=== PATIENT | female | born 1975 | race Caucasian/White ===

== ENCOUNTER 2017-09-24 15:32 | Inpatient (IN) | payer BC ==
[2017-09-24] MEDS ORDERED: HYDROmorphone 0.5 MG/0.5 ML SYRINGE IVPUSH ONE (17:13)
[2017-09-24] MEDS ORDERED: Lidocaine 1% with EPINEPHrine 1:100,000 20 ML MDV INJECT ONE (17:20)
[2017-09-24] MEDS ORDERED: fentaNYL 100 MCG/2 ML SDV ONE (17:33)
[2017-09-24] MEDS ORDERED: Midazolam 1 MG/ML 2 ML SDV ONE (17:34)
[2017-09-24] MEDS ORDERED: fentaNYL 100 MCG/2 ML SDV IVPUSH ONE (18:54)
[2017-09-24] MEDS ORDERED: Midazolam 1 MG/ML 2 ML SDV IVPUSH ONE (18:54)
--- NOTE | 2017-09-24 19:09 | EDM.PDOC ---
ED HPI GENERAL MEDICAL PROBLEM - General Chief Complaint: Headache Stated Complaint: [facility] Time Seen by Provider: 09/24/17 15:59 Source of Information: Reports: Patient History Limitations: Reports: No Limitations - History of Present Illness INITIAL COMMENTS - FREE TEXT/NARRATIVE: 42 y/o F with hx TBI presents with severe headache and neck pain from [facility]. She has chronic headaches but this one is different. Started a few days ago. Sharp, worse posteriorly, worse with head movements, radiates to neck. Has associated severe neck pain. No new injury. No known provoking factor. 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 Had fever to 101 at home yesterday. Mild nausea. No vomiting. no chest pain, cough/sore throat/rhinorrhea. No abd pain. Denies dysuria/hematuria/flank pain. Seen at [place] where CT head was negative. UA positive for infection with LCE+, nitrite +, and >100wbc/hpf. Not treated due to lack of urinary symptoms and ongoing concern for meningitis. Headache Pain Score (Numeric/FACES): 8 - Related Data Allergies Allergy/AdvReac Type Severity Reaction Status Date / Time aspirin Allergy Anaphylactic Verified 09/24/17 15:47 Shock codeine Allergy Anaphylactic Verified 09/24/17 15:47 Shock latex Allergy Hives Verified 09/24/17 15:47 Home Meds: Home Meds Levothyroxine Sodium [Synthroid] 150 mcg PO DAILY 09/24/17 [History] Magnesium 0 mg PO DAILY 09/24/17 [History] Topiramate 50 mg PO DAILY 09/24/17 [History] Past Medical History Neurological History: Reports: Head Trauma, Migraines, Other (See Below) Other Neuro History: head inijury 2 years ago Endocrine/Metabolic History: Reports: Hypoparathyroidism, Hypothyroidism - Past Surgical History GI Surgical History: Reports: Appendectomy, Cholecystectomy Social & Family History - Tobacco Use Smoking Status *Q: Never Smoker - Caffeine Use Caffeine Use: Reports: None - Recreational Drug Use Recreational Drug Use: No ED ROS GENERAL - Review of Systems Review Of Systems: See Below Constitutional: Reports: Fever, Chills, Malaise, Weakness, Fatigue HEENT: Denies: Throat Pain Respiratory: Denies: Cough Cardiovascular: Denies: Chest Pain Endocrine: Reports: No Symptoms GI/Abdominal: Denies: Abdominal Pain : Denies: Dysuria, Flank Pain Musculoskeletal: Reports: Neck Pain Skin: Reports: No Symptoms Neurological: Reports: Headache Psychiatric: Reports: No Symptoms Hematologic/Lymphatic: Reports: No Symptoms Immunologic: Reports: No Symptoms - Physical Exam Exam: See Below Exam Limited By: No Limitations General Appearance: Alert, WD/WN, Mild Distress Eye Exam: Bilateral Eye: EOMI, Normal Inspection, PERRL Ears: Normal External Exam Nose: Normal Inspection Throat/Mouth: Normal Inspection, Normal Oropharynx, Normal Voice, No Airway Compromise Head Exam: Atraumatic, Normocephalic Neck: Normal Inspection, Other (+some stiffness/hesitancy with ROM due to pain, no external evidence of infection) Respiratory/Chest: No Respiratory Distress, Lungs Clear, Normal Breath Sounds, No Accessory Muscle Use, Chest Non-Tender Cardiovascular: Normal Peripheral Pulses, Regular Rate, Rhythm, No Edema, No Murmur GI/Abdominal: Soft, Non-Tender, No Distention. No: Rebound Neuro Exam (Abbreviated): Alert, Oriented, CN II-XII Intact, Normal Cognition, No Motor/Sensory Deficits Back Exam: Normal Inspection. No: CVA Tenderness (L), CVA Tenderness (R) Extremities: Normal Inspection Psychiatric: Normal Affect, Normal Mood Skin Exam: Warm, Dry, Intact, Normal Color, No Rash ED LUMBAR PUNCTURE - Lumbar Puncture Indication: Fever, Nuchal Rigidity, Headache Consent Obtained: Patient Position: Sitting Prep: Sterile Drapes, Chlorhexidine Local Anesthesia - Lidocaine (Xylocaine): 1% with EPI Local Anesthetic Volume: 5cc Vertebral Interspace: L4/L5 Spinal Needle With Stylet: 22ga, 3.5 Inch (Adult) Number of Attempts: 1 Fluid Appearance: Clear Tubes Obtained: 4 Total Fluid Amount: 4cc Complications: No Course - Vital Signs Last Recorded V/S: Last Vital Signs Temp 36.2 C 09/25/17 03:25 Pulse 91 09/24/17 15:38 Resp 18 09/25/17 03:25 BP 108/72 09/25/17 03:25 Pulse Ox 99 09/25/17 03:25 - Orders/Labs/Meds Orders: Active Orders 24 hr Category Date Time Status Height and Weight [RC] 04 Care 09/24/17 20:19 Active Intake and Output [RC] 04,16 Care 09/24/17 20:19 Active Oxygen Therapy [RC] PRN Care 09/24/17 20:19 Active RT Aerosol Therapy [RC] ASDIRECTED Care 09/24/17 20:22 Active Up With Assistance [RC] ASDIRECTED Care 09/24/17 20:19 Active Up ad Mary [RC] ASDIRECTED Care 09/24/17 20:19 Active VTE/DVT Education [RC] BID Care 09/24/17 20:19 Active Vital Signs [RC] Q4HR Care 09/24/17 20:19 Active Consult to Case Management [CONS] Routine Cons 09/24/17 20:22 Active Consult to Certified Art Therapist [CONS] Routine Cons 09/24/17 20:22 Active Consult to Spiritual Care [CONS] Routine Cons 09/24/17 20:22 Active OT Evaluation and Treatment [CONS] Routine Cons 09/24/17 20:22 Active PT Evaluation and Treatment [CONS] Routine Cons 09/24/17 20:22 Active Regular Diet [DIET] Diet 09/24/17 Dinner Active BASIC METABOLIC PANEL,BMP [CHEM] AM Lab 09/26/17 05:11 Ordered BASIC METABOLIC PANEL,BMP [CHEM] AM Lab 09/27/17 05:11 Ordered C-REACTIVE PROTEIN [CHEM] AM Lab 09/26/17 05:11 Ordered C-REACTIVE PROTEIN [CHEM] AM Lab 09/27/17 05:11 Ordered C-REACTIVE PROTEIN [CHEM] AM Lab 09/28/17 05:11 Ordered CBC WITH AUTO DIFF [HEME] AM Lab 09/26/17 05:11 Ordered CBC WITH AUTO DIFF [HEME] AM Lab 09/27/17 05:11 Ordered CBC WITH AUTO DIFF [HEME] AM Lab 09/28/17 05:11 Ordered CELL COUNT,CSF [BF] Stat Lab 09/24/17 19:05 Ordered CULTURE BLOOD [BC] Stat Lab 09/24/17 19:43 Received CULTURE BLOOD [BC] Stat Lab 09/24/17 20:05 Received CULTURE CSF + SMEAR [RM] Stat Lab 09/24/17 18:48 Ordered CULTURE URINE [RM] Stat Lab 09/25/17 03:20 Ordered GLUCOSE,CSF [BF] Stat Lab 09/24/17 19:05 COMP HOLD CSF IN LAB TUBE 1 [BF] Stat Lab 09/24/17 18:48 COMP HOLD CSF IN LAB TUBE 2 [BF] Stat Lab 09/24/17 18:48 COMP MAGNESIUM [CHEM] AM Lab 09/26/17 05:11 Ordered MAGNESIUM [CHEM] AM Lab 09/27/17 05:11 Ordered PROTEIN,CSF [BF] Stat Lab 09/24/17 19:05 COMP Acetaminophen [Tylenol] Med 09/24/17 20:19 Active 650 mg PO Q4H PRN Albuterol/Ipratropium [DuoNeb 3.0-0.5 MG/3 ML] Med 09/24/17 20:19 Active 3 ml NEB Q4H PRN Bisacodyl [Dulcolax] Med 09/24/17 20:19 Active 5 mg PO DAILY PRN Docusate Sodium [Colace] Med 09/24/17 20:19 Active 100 mg PO BID PRN Docusate Sodium/Sennosides [Senna Plus] Med 09/24/17 20:19 Active 1 tab PO BID PRN HYDROmorphone [Dilaudid] Med 09/24/17 20:19 Active 0.5 mg IVPUSH Q2H PRN LORazepam [Ativan] Med 09/24/17 20:23 Active 2 mg IVPUSH Q4H PRN Magnesium Rep Pharmacy to Dose [Pharmacy to Dose - Med 09/24/17 20:30 Pending Magnesium Replacement] 1 dose .XX ASDIRECTED Metoprolol Tartrate [Lopressor] Med 09/24/17 20:23 Active 5 mg IVPUSH Q4H PRN Ondansetron [Zofran] Med 09/24/17 20:19 Active 4 mg IV Q6H PRN Polyethylene Glycol 3350 [MiraLAX] Med 09/24/17 20:19 Active 17 gm PO DAILY PRN Potassium Rep Pharmacy to Dose [Pharmacy to Dose - Med 09/24/17 20:30 Pending Potassium Replacement] 1 dose .XX ASDIRECTED Promethazine [Phenergan] 12.5 mg Med 09/24/17 20:19 Active Sodium Chloride 0.9% [Normal Saline] 50 ml IV Q6H Sodium Chloride 0.9% [Normal Saline] 1,000 ml Med 09/24/17 20:30 Active IV ASDIRECTED Temazepam [Restoril] Med 09/24/17 20:19 Active 15 mg PO BEDTIME PRN Topiramate [Topamax] Med 09/24/17 21:00 Active 50 mg PO BID hydrALAZINE [Apresoline] Med 09/24/17 20:23 Active 20 mg IVPUSH Q4H PRN Blood Culture x2 Reflex Set [OM.PC] Stat Oth 09/24/17 19:03 Ordered Sequential Compression Device [OM.PC] Per Unit Routine Oth 09/24/17 20:19 Ordered Resuscitation Status Routine Resus Stat 09/24/17 20:19 Ordered Medication Orders Acetaminophen (Tylenol) 650 mg PO Q4H PRN PRN Reason: Pain (Mild 1-3)/fever Last Admin: 09/25/17 03:23 Dose: 650 mg Albuterol/Ipratropium (Duoneb 3.0-0.5 Mg/3 Ml) 3 ml NEB Q4H PRN PRN Reason: Shortness Of Breath/wheezing Bisacodyl (Dulcolax) 5 mg PO DAILY PRN PRN Reason: Constipation Calcium Carbonate/Glycine (Calcium Carbonate) 1,200 mg PO BIDMEALS TONY Docusate Sodium (Colace) 100 mg PO BID PRN PRN Reason: Constipation Hydralazine HCl (Apresoline) 20 mg IVPUSH Q4H PRN PRN Reason: Hypertension Hydromorphone HCl (Dilaudid) 0.5 mg IVPUSH Q2H PRN PRN Reason: Pain (severe 7-10) Promethazine HCl 12.5 mg/ (Sodium Chloride) 50.5 mls @ 100 mls/hr IV Q6H PRN PRN Reason: Nausea/Vomiting Sodium Chloride (Normal Saline) 1,000 mls @ 125 mls/hr IV ASDIRECTED [facility] Last Admin: 09/25/17 05:12 Dose: 125 mls/hr Infusion: 09/25/17 04:55 Dose: 125 mls/hr Admin: 09/24/17 20:55 Dose: 125 mls/hr Ceftriaxone Sodium 2 gm/ (Sodium Chloride) 100 mls @ 200 mls/hr IV Q12H [facility] Vancomycin HCl 1.75 gm/ Sodium (Chloride) 500 mls @ 250 mls/hr IV Q12H [facility] Levothyroxine Sodium (Levothyroxine) 150 mcg PO ACBRK [facility] Last Admin: 09/25/17 05:12 Dose: 150 mcg Lorazepam (Ativan) 2 mg IVPUSH Q4H PRN PRN Reason: Seizures Magnesium Sulfate (Pharmacy To Dose - Magnesium Replacement) 1 dose .XX ASDIRECTED [facility] Metoprolol Tartrate (Lopressor) 5 mg IVPUSH Q4H PRN PRN Reason: Tachycardia Ondansetron HCl (Zofran) 4 mg IV Q6H PRN PRN Reason: Nausea/Vomiting Polyethylene Glycol (Miralax) 17 gm PO DAILY PRN PRN Reason: Constipation Potassium Chloride (Pharmacy To Dose - Potassium Replacement) 1 dose .XX ASDIRECTED [facility] Saccharomyces Boulardii (Florastor) 250 mg PO BID [facility] Senna/Docusate Sodium (Senna Plus) 1 tab PO BID PRN PRN Reason: Constipation Temazepam (Restoril) 15 mg PO BEDTIME PRN PRN Reason: Sleep Topiramate (Topamax) 50 mg PO BID [facility] Last Admin: 09/24/17 23:03 Dose: Vancomycin HCl (Pharmacy To Dose - Vancomycin) 1 dose .XX ASDIRECTED [facility] Labs: Laboratory Tests 09/24/17 09/24/17 09/24/17 Range/Units 17:26 17:26 19:05 WBC 11.60 H (3.98-10.04) K/mm3 RBC 4.91 (3.98-5.22) M/mm3 Hgb 13.5 (11.2-15.7) gm/L Hct 41.6 (34.1-44.9) % MCV 84.7 (79.4-94.8) fl MCH 27.5 (25.6-32.2) pg MCHC 32.5 (32.2-35.5) g/dl RDW Std Deviation 42.8 (36.4-46.3) fL Plt Count 369 (182-369) K/mm3 MPV 8.3 L (9.4-12.3) fl Neut % (Auto) 71.7 H (34.0-71.1) % Lymph % (Auto) 15.6 L (19.3-51.7) % Elbert % (Auto) 10.3 (4.7-12.5) % Eos % (Auto) 1.8 (0.7-5.8) Baso % (Auto) 0.3 (0.1-1.2) % Neut # (Auto) 8.31 H (1.56-6.13) K/mm3 Lymph # (Auto) 1.81 (1.18-3.74) K/mm3 Elbert # (Auto) 1.20 H (0.24-0.36) K/mm3 Eos # (Auto) 0.21 (0.04-0.36) K/mm3 Baso # (Auto) 0.03 (0.01-0.08) K/mm3 Sodium 142 (136-145) mEq/L Potassium 3.9 (3.5-5.1) mEq/L Chloride 106 (98-107) mEq/L Carbon Dioxide 23 (21-32) mEq/L Anion Gap 16.9 H (5-15) BUN 10 (7-18) mg/dL Creatinine 1.3 H (0.55-1.02) mg/dL Est Cr Clr Drug Dosing 60.12 mL/min Estimated GFR (MDRD) 45 (>60) mL/min BUN/Creatinine Ratio 7.7 L (14-18) Glucose 87 (74-106) mg/dL Calcium 9.0 (8.5-10.1) mg/dL Total Bilirubin 0.5 (0.2-1.0) mg/dL AST 50 H (15-37) U/L ALT 166 H (14-59) U/L Alkaline Phosphatase 211 H (46-116) U/L C-Reactive Protein 17.9 H* (<1.0) mg/dL Total Protein 7.5 (6.4-8.2) g/dl Albumin 3.3 L (3.4-5.0) g/dl Globulin 4.2 gm/dL Albumin/Globulin Ratio 0.8 L (1-2) CSF Tube Number 2 CSF Volume 2 ml CSF Appearance Clear (CLEAR) CSF Color Colorless CSF Supernatant Appear No xanthochromia CSF WBC 3 (0-8) /uL CSF RBC 0 (0-8) /mm3 CSF Seg Neutrophils 1.0 (0-5) CSF Lymphocytes 9.0 H (0-8) CSF Monos/Macrophages 4.0 (0-5) CSF Glucose (40-70) mg/dl CSF Total Protein (15-45) mg/dl 09/24/17 Range/Units 19:05 WBC (3.98-10.04) K/mm3 RBC (3.98-5.22) M/mm3 Hgb (11.2-15.7) gm/L Hct (34.1-44.9) % MCV (79.4-94.8) fl MCH (25.6-32.2) pg MCHC (32.2-35.5) g/dl RDW Std Deviation (36.4-46.3) fL Plt Count (182-369) K/mm3 MPV (9.4-12.3) fl Neut % (Auto) (34.0-71.1) % Lymph % (Auto) (19.3-51.7) % Elbert % (Auto) (4.7-12.5) % Eos % (Auto) (0.7-5.8) Baso % (Auto) (0.1-1.2) % Neut # (Auto) (1.56-6.13) K/mm3 Lymph # (Auto) (1.18-3.74) K/mm3 Elbert # (Auto) (0.24-0.36) K/mm3 Eos # (Auto) (0.04-0.36) K/mm3 Baso # (Auto) (0.01-0.08) K/mm3 Sodium (136-145) mEq/L Potassium (3.5-5.1) mEq/L Chloride (98-107) mEq/L Carbon Dioxide (21-32) mEq/L Anion Gap (5-15) BUN (7-18) mg/dL Creatinine (0.55-1.02) mg/dL Est Cr Clr Drug Dosing mL/min Estimated GFR (MDRD) (>60) mL/min BUN/Creatinine Ratio (14-18) Glucose (74-106) mg/dL Calcium (8.5-10.1) mg/dL Total Bilirubin (0.2-1.0) mg/dL AST (15-37) U/L ALT (14-59) U/L Alkaline Phosphatase (46-116) U/L C-Reactive Protein (<1.0) mg/dL Total Protein (6.4-8.2) g/dl Albumin (3.4-5.0) g/dl Globulin gm/dL Albumin/Globulin Ratio (1-2) CSF Tube Number CSF Volume ml CSF Appearance (CLEAR) CSF Color CSF Supernatant Appear CSF WBC (0-8) /uL CSF RBC (0-8) /mm3 CSF Seg Neutrophils (0-5) CSF Lymphocytes (0-8) CSF Monos/Macrophages (0-5) CSF Glucose 56.0 (40-70) mg/dl CSF Total Protein 39.6 (15-45) mg/dl Meds: Medications Generic Name Dose Route Start Last Admin Trade Name Freq PRN Reason Stop Dose Admin Acetaminophen 650 mg 09/24/17 20:19 09/25/17 03:23 Tylenol PO 650 mg Q4H PRN Administration Pain (Mild 1-3)/fever Albuterol/Ipratropium 3 ml 09/24/17 20:19 Duoneb 3.0-0.5 Mg/3 Ml NEB Q4H PRN Shortness Of Breath/wheezing Bisacodyl 5 mg 09/24/17 20:19 Dulcolax PO DAILY PRN Constipation Calcium Carbonate/Glycine 1,200 mg 09/25/17 17:00 Calcium Carbonate PO BIDMEALS TONY Docusate Sodium 100 mg 09/24/17 20:19 Colace PO BID PRN Constipation Hydralazine HCl 20 mg 09/24/17 20:23 Apresoline IVPUSH Q4H PRN Hypertension Hydromorphone HCl 0.5 mg 09/24/17 20:19 Dilaudid IVPUSH Q2H PRN Pain (severe 7-10) Promethazine HCl 12.5 mg/ 50.5 mls @ 100 mls/hr 09/24/17 20:19 Sodium Chloride IV Q6H PRN Nausea/Vomiting Sodium Chloride 1,000 mls @ 125 mls/hr 09/24/17 20:30 09/25/17 05:12 Normal Saline IV 125 mls/hr ASDIRECTED TONY Administration Ceftriaxone Sodium 2 gm/ 100 mls @ 200 mls/hr 09/25/17 09:00 Sodium Chloride IV Q12H [facility] Vancomycin HCl 1.75 gm/ Sodium 500 mls @ 250 mls/hr 09/25/17 09:00 Chloride IV Q12H [facility] Levothyroxine Sodium 150 mcg 09/25/17 06:00 09/25/17 05:12 Levothyroxine PO 150 mcg ACBRK [facility]Y Administration Lorazepam 2 mg 09/24/17 20:23 Ativan IVPUSH Q4H PRN Seizures Magnesium Sulfate 1 dose 09/24/17 20:30 Pharmacy To Dose - Magnesium Replacement .XX ASDIRECTED [facility] Metoprolol Tartrate 5 mg 09/24/17 20:23 Lopressor IVPUSH Q4H PRN Tachycardia Ondansetron HCl 4 mg 09/24/17 20:19 Zofran IV Q6H PRN Nausea/Vomiting Polyethylene Glycol 17 gm 09/24/17 20:19 Miralax PO DAILY PRN Constipation Potassium Chloride 1 dose 09/24/17 20:30 Pharmacy To Dose - Potassium Replacement .XX ASDIRECTED [facility] Saccharomyces Boulardii 250 mg 09/25/17 09:00 Florastor PO BID [facility] Senna/Docusate Sodium 1 tab 09/24/17 20:19 Senna Plus PO BID PRN Constipation Temazepam 15 mg 09/24/17 20:19 Restoril PO BEDTIME PRN Sleep Topiramate 50 mg 09/24/17 21:00 09/24/17 23:03 Topamax PO Not Given BID [facility] Vancomycin HCl 1 dose 09/24/17 23:00 Pharmacy To Dose - Vancomycin .XX ASDIRECTED [facility] Discontinued Medications Generic Name Dose Route Start Last Admin Trade Name Freq PRN Reason Stop Dose Admin Ceftriaxone Sodium 2 gm 09/24/17 19:15 09/24/17 21:54 Rocephin IVPUSH Not Given Q24H [facility] Diphenhydramine HCl 50 mg 09/24/17 20:24 09/24/17 20:48 Benadryl IVPUSH 09/24/17 20:25 50 mg ONETIME ONE Administration Fentanyl Confirm 09/24/17 17:33 09/24/17 18:58 Sublimaze Administered 09/24/17 17:34 Not Given Dose 100 mcg .ROUTE .STK-MED ONE Fentanyl 100 mcg 09/24/17 18:54 09/24/17 18:20 Sublimaze IVPUSH 09/24/17 18:55 100 mcg ONETIME ONE Administration Hydromorphone HCl 1 mg 09/24/17 17:13 09/24/17 17:20 Dilaudid IVPUSH 09/24/17 17:14 1 mg ONETIME ONE Administration Vancomycin HCl 2 gm/ Sodium 250 mls @ 250 mls/hr 09/24/17 19:06 09/24/17 20: 55 Chloride IV 09/24/17 20:05 250 mls/hr ONETIME ONE Administration Ceftriaxone Sodium 2 gm/ 100 mls @ 100 mls/hr 09/24/17 19:45 09/24/17 19:43 Sodium Chloride IV 100 mls/hr Q24H [facility] Administration Magnesium Sulfate/Dextrose 1 100 mls @ 100 mls/hr 09/24/17 20:25 09/24/17 22: 09 gm/ Premix IV 09/24/17 21:24 100 mls/hr ONETIME ONE Administration Ketorolac Tromethamine 30 mg 09/24/17 20:24 09/24/17 20:48 Toradol IVPUSH 09/24/17 20:25 30 mg ONETIME ONE Administration Levothyroxine Sodium 150 mcg 09/25/17 09:00 Levothyroxine PO DAILY [facility] Lidocaine/Epinephrine 20 ml 09/24/17 17:20 09/24/17 18:57 Xylocaine 1% With Epinephrine 1:100,000 INJECT 09/24/17 17:21 20 ml ONETIME ONE Administration Metoclopramide HCl 10 mg 09/24/17 20:25 09/24/17 20:48 Reglan IVPUSH 09/24/17 20:26 10 mg ONETIME ONE Administration Midazolam HCl Confirm 09/24/17 17:34 09/24/17 18:58 Versed 1 Mg/Ml Administered 09/24/17 17:35 Not Given Dose 6 mg .ROUTE .STK-MED ONE Midazolam HCl 2 mg 09/24/17 18:54 09/24/17 18:35 Versed 1 Mg/Ml IVPUSH 09/24/17 18:55 2 mg ONETIME ONE Administration Non-Formulary Medication 50 mg 09/25/17 09:00 Topiramate PO DAILY [facility] Oxycodone HCl 5 mg 09/24/17 20:19 Oxycodone PO Q4H PRN Pain (moderate 4-6) Pantoprazole Sodium 40 mg 09/24/17 20:19 09/24/17 22:09 Protonix Iv IVPUSH 09/24/17 20:20 40 mg ONETIME ONE Administration - Re-Assessments/Exams Free Text/Narrative Re-Assessment/Exam: 09/24/17 19:26 Mildly elevated WBC, no additional SIRS criteria. Nontoxic appearing. However given severe headache/neck stiffness and elevated inflammatory markers, proceeded with LP. Antibiotics ordered. Urine culture ordered. Discussed with Dr. Melgar who agrees to admit. CSF has been sent. Departure - Departure Time of Disposition: 19:08 Disposition: Admitted As Inpatient 68 Clinical Impression: Pyelonephritis Headache Qualifiers: Headache type: unspecified Headache chronicity pattern: acute headache Intractability: intractable Qualified Code(s): R51 - Headache - Discharge Information - My Orders Last 24 Hours: My Active Orders 09/24/17 18:48 CULTURE CSF + SMEAR [RM] Stat HOLD CSF IN LAB TUBE 1 [BF] Stat HOLD CSF IN LAB TUBE 2 [BF] Stat 09/24/17 19:03 Blood Culture x2 Reflex Set [OM.PC] Stat 09/24/17 19:05 CELL COUNT,CSF [BF] Stat GLUCOSE,CSF [BF] Stat PROTEIN,CSF [BF] Stat 09/24/17 19:43 CULTURE BLOOD [BC] Stat 09/24/17 20:05 CULTURE BLOOD [BC] Stat 09/25/17 03:20 CULTURE URINE [RM] Stat - Assessment/Plan Last 24 Hours: My Active Orders 09/24/17 18:48 CULTURE CSF + SMEAR [RM] Stat HOLD CSF IN LAB TUBE 1 [BF] Stat HOLD CSF IN LAB TUBE 2 [BF] Stat 09/24/17 19:03 Blood Culture x2 Reflex Set [OM.PC] Stat 09/24/17 19:05 CELL COUNT,CSF [BF] Stat GLUCOSE,CSF [BF] Stat PROTEIN,CSF [BF] Stat 09/24/17 19:43 CULTURE BLOOD [BC] Stat 09/24/17 20:05 CULTURE BLOOD [BC] Stat 09/25/17 03:20 CULTURE URINE [RM] Stat
[2017-09-24] MEDS ORDERED: cefTRIAXone 2 GM Vial IVPUSH SCH (19:15)
[2017-09-24] MEDS ORDERED: cefTRIAXone 2 GM in Sodium Chloride 0.9% 100 ML IV SCH (19:45)
[2017-09-24] MEDS ORDERED: Temazepam 15 MG Cap PO PRN (20:19)
[2017-09-24] MEDS ORDERED: Docusate Sodium 100 MG Cap PO PRN (20:19)
[2017-09-24] MEDS ORDERED: Promethazine 12.5 MG in Sodium Chloride 0.9% 50 ML IV PRN (20:19)
[2017-09-24] MEDS ORDERED: HYDROmorphone 0.5 MG/0.5 ML SYRINGE IVPUSH PRN (20:19)
[2017-09-24] MEDS ORDERED: Albuterol/Ipratropium 3.0-0.5 MG/3 ML Neb Soln NEB PRN (20:19)
[2017-09-24] MEDS ORDERED: Pantoprazole 40 MG Vial IVPUSH ONE (20:19)
[2017-09-24] MEDS ORDERED: Polyethylene Glycol 3350 Powder 17 GM Packet PO PRN (20:19)
[2017-09-24] MEDS ORDERED: oxyCODONE 5 MG Tab PO PRN (20:19)
[2017-09-24] MEDS ORDERED: Bisacodyl 5 MG Tab PO PRN (20:19)
[2017-09-24] MEDS ORDERED: Ondansetron 4 MG/2 ML SDV IV PRN (20:19)
[2017-09-24] MEDS ORDERED: LORazepam 2 MG/ML SDV IVPUSH PRN (20:23)
[2017-09-24] MEDS ORDERED: hydrALAZINE 20 MG/ML SDV IVPUSH PRN (20:23)
[2017-09-24] MEDS ORDERED: Metoprolol Tartrate 5 MG/5 ML SDV IVPUSH PRN (20:23)
[2017-09-24] MEDS ORDERED: Ketorolac 30 MG/ML SDV IVPUSH ONE (20:24)
[2017-09-24] MEDS ORDERED: diphenhydrAMINE 50 MG/ML SDV IVPUSH ONE (20:24)
[2017-09-24] MEDS ORDERED: Metoclopramide 10 MG/2 ML SDV IVPUSH ONE (20:25)
[2017-09-24] MEDS: Sodium Chloride 0.9% 1,000 ML IV SCH (20:55)
--- NOTE | 2017-09-24 21:11 | PCM.HP ---
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 She took tylenol and had been bed rest but w/o any relief. Yesterday, she developed a fever of up to 101. Patient reports photophobia, nausea, and generalized weakness. She also reports not been able to eat or drink due to persist headache. Additionally, patient reports recent eye surgery 3-4 days ago in [place] with Dr. Briggs due to increasing ocular pressure. She was prescribed a new pair of eye glasses but her new rx has not got to her yet. Today, she was primarily seen in [place]. Her initial evaluation shows a fairly unremarkable labs but UA is positive for UTI. Her Head CT scan reports no acute abnormal findings. While in our ED, patient underwent LP to r/o meningitis. She has received intravenous rocephin and vancomycin before she was sent to the unit for further treatment. She being admitted for Severe Headache S/p Intra-ocular Surgery. She is full code. Headache Pain Score (Numeric/FACES): 8 - Related Data Allergies/Adverse Reactions: Allergies Allergy/AdvReac Type Severity Reaction Status Date / Time aspirin Allergy Anaphylactic Verified 09/24/17 15:47 Shock codeine Allergy Anaphylactic Verified 09/24/17 15:47 Shock latex Allergy Hives Verified 09/24/17 15:47 Home Medications: Home Meds Levothyroxine Sodium [Synthroid] 150 mcg PO DAILY 09/24/17 [History] Magnesium 0 mg PO DAILY 09/24/17 [History] Topiramate 50 mg PO DAILY 09/24/17 [History] Liothyronine [Cytomel] 5 mcg PO BID 09/25/17 [History] Past Medical History Neurological History: Reports: Head Trauma, Migraines, Other (See Below) Other Neuro History: head inijury 2 years ago Endocrine/Metabolic History: Reports: Hypoparathyroidism, Hypothyroidism - Past Surgical History GI Surgical History: Reports: Appendectomy, Cholecystectomy Social & Family History - Family History Family Medical History: Noncontributory - Tobacco Use Smoking Status *Q: Never Smoker - Caffeine Use Caffeine Use: Reports: None - Recreational Drug Use Recreational Drug Use: No H&P Review of Systems - Review of Systems: Review Of Systems: See Below General: Reports: Malaise, Weakness. Denies: Fever, Chills HEENT: Reports: Headaches, Other (photophobia) Pulmonary: Reports: No Symptoms Cardiovascular: Reports: No Symptoms Gastrointestinal: Reports: No Symptoms Genitourinary: Reports: No Symptoms Musculoskeletal: Reports: No Symptoms Skin: Denies: Cyanosis, Mottled, Pallor Psychiatric: Denies: Depression, Agitation, Cravings, Suicidal Ideation Neurological: Reports: No Symptoms, Dizziness, Headache, Weakness, Gait Disturbance Hematologic/Lymphatic: Reports: No Symptoms Immunologic: Reports: No Symptoms Exam - Exam Exam: See Below - Vital Signs Vital Signs: Last Vital Signs Temp 37.3 C 09/24/17 15:38 Pulse 91 09/24/17 15:38 Resp 20 09/24/17 15:38 BP 136/90 09/24/17 15:38 Pulse Ox 100 09/24/17 15:38 Weight: 115.666 kg - Exam General: Alert, Oriented, Cooperative HEENT: Conjunctiva Clear, EACs Clear, EOMI, Hearing Intact, Mucosa Moist & Gypsum , Normal Nasal Septum, Posterior Pharynx Clear, Pupils Equal, Other (limited eye ) Neck: Supple, Trachea Midline. No: Full Range of Motion Lungs: Clear to Auscultation, Normal Respiratory Effort Cardiovascular: Regular Rate, Regular Rhythm GI/Abdominal Exam: Normal Bowel Sounds, Soft, Non-Tender, No Organomegaly, No Distention, No Abnormal Bruit, No Mass, Pelvis Stable (Female) Exam: Deferred Rectal (Female) Exam: Deferred Back Exam: Normal Inspection, Decreased Range of Motion Extremities: Normal Inspection, Normal Range of Motion, Non-Tender, No Pedal Edema, Normal Capillary Refill Peripheral Pulses: 3+: Posterior Tibial (L), Posterior Tibial (R), Dorsalis Pedis (L), Dorsalis Pedis (R) Skin: Warm, Dry, Intact Neuro Extensive - Mental Status: Oriented x3, Normal Cognition, Memory Intact Neuro Extensive - Motor, Sensory, Reflexes: CN II-XII Intact (limited due to severe headache and photophobia), Abnormal Gait Psychiatric: Alert, Normal Affect, Normal Mood - Patient Data Lab Results Last 24 hrs: Laboratory Results - last 24 hr 09/24/17 09/24/17 09/24/17 Range/Units 17:26 17:26 19:05 WBC 11.60 H (3.98-10.04) K/mm3 RBC 4.91 (3.98-5.22) M/mm3 Hgb 13.5 (11.2-15.7) gm/L Hct 41.6 (34.1-44.9) % MCV 84.7 (79.4-94.8) fl MCH 27.5 (25.6-32.2) pg MCHC 32.5 (32.2-35.5) g/dl RDW Std Deviation 42.8 (36.4-46.3) fL Plt Count 369 (182-369) K/mm3 MPV 8.3 L (9.4-12.3) fl Neut % (Auto) 71.7 H (34.0-71.1) % Lymph % (Auto) 15.6 L (19.3-51.7) % Lincoln % (Auto) 10.3 (4.7-12.5) % Eos % (Auto) 1.8 (0.7-5.8) Baso % (Auto) 0.3 (0.1-1.2) % Neut # (Auto) 8.31 H (1.56-6.13) K/mm3 Lymph # (Auto) 1.81 (1.18-3.74) K/mm3 Lincoln # (Auto) 1.20 H (0.24-0.36) K/mm3 Eos # (Auto) 0.21 (0.04-0.36) K/mm3 Baso # (Auto) 0.03 (0.01-0.08) K/mm3 Sodium 142 (136-145) mEq/L Potassium 3.9 (3.5-5.1) mEq/L Chloride 106 (98-107) mEq/L Carbon Dioxide 23 (21-32) mEq/L Anion Gap 16.9 H (5-15) BUN 10 (7-18) mg/dL Creatinine 1.3 H (0.55-1.02) mg/dL Est Cr Clr Drug Dosing 60.12 mL/min Estimated GFR (MDRD) 45 (>60) mL/min BUN/Creatinine Ratio 7.7 L (14-18) Glucose 87 (74-106) mg/dL Calcium 9.0 (8.5-10.1) mg/dL Total Bilirubin 0.5 (0.2-1.0) mg/dL AST 50 H (15-37) U/L ALT 166 H (14-59) U/L Alkaline Phosphatase 211 H (46-116) U/L C-Reactive Protein 17.9 H* (<1.0) mg/dL Total Protein 7.5 (6.4-8.2) g/dl Albumin 3.3 L (3.4-5.0) g/dl Globulin 4.2 gm/dL Albumin/Globulin Ratio 0.8 L (1-2) CSF Tube Number 2 CSF Volume 2 ml CSF Appearance Clear (CLEAR) CSF Color Colorless CSF Supernatant Appear No xanthochromia CSF WBC 3 (0-8) /uL CSF RBC 0 (0-8) /mm3 CSF Seg Neutrophils 1.0 (0-5) CSF Lymphocytes 9.0 H (0-8) CSF Monos/Macrophages 4.0 (0-5) CSF Glucose (40-70) mg/dl CSF Total Protein (15-45) mg/dl /12/06 Range/Units 19:05 WBC (3.98-10.04) K/mm3 RBC (3.98-5.22) M/mm3 Hgb (11.2-15.7) gm/L Hct (34.1-44.9) % MCV (79.4-94.8) fl MCH (25.6-32.2) pg MCHC (32.2-35.5) g/dl RDW Std Deviation (36.4-46.3) fL Plt Count (182-369) K/mm3 MPV (9.4-12.3) fl Neut % (Auto) (34.0-71.1) % Lymph % (Auto) (19.3-51.7) % Lincoln % (Auto) (4.7-12.5) % Eos % (Auto) (0.7-5.8) Baso % (Auto) (0.1-1.2) % Neut # (Auto) (1.56-6.13) K/mm3 Lymph # (Auto) (1.18-3.74) K/mm3 Lincoln # (Auto) (0.24-0.36) K/mm3 Eos # (Auto) (0.04-0.36) K/mm3 Baso # (Auto) (0.01-0.08) K/mm3 Sodium (136-145) mEq/L Potassium (3.5-5.1) mEq/L Chloride (98-107) mEq/L Carbon Dioxide (21-32) mEq/L Anion Gap (5-15) BUN (7-18) mg/dL Creatinine (0.55-1.02) mg/dL Est Cr Clr Drug Dosing mL/min Estimated GFR (MDRD) (>60) mL/min BUN/Creatinine Ratio (14-18) Glucose (74-106) mg/dL Calcium (8.5-10.1) mg/dL Total Bilirubin (0.2-1.0) mg/dL AST (15-37) U/L ALT (14-59) U/L Alkaline Phosphatase (46-116) U/L C-Reactive Protein (<1.0) mg/dL Total Protein (6.4-8.2) g/dl Albumin (3.4-5.0) g/dl Globulin gm/dL Albumin/Globulin Ratio (1-2) CSF Tube Number CSF Volume ml CSF Appearance (CLEAR) CSF Color CSF Supernatant Appear CSF WBC (0-8) /uL CSF RBC (0-8) /mm3 CSF Seg Neutrophils (0-5) CSF Lymphocytes (0-8) CSF Monos/Macrophages (0-5) CSF Glucose 56.0 (40-70) mg/dl CSF Total Protein 39.6 (15-45) mg/dl Result Diagrams: 09/25/17 05:14 09/25/17 05:14 Problem List Initiated/Reviewed/Updated: Yes Orders Last 24hrs: Active Orders 24 hr Category Date Time Status Admission Status [Patient Status] [ADT] Routine ADT 09/24/17 20:40 Active Height and Weight [RC] DAILY Care 09/24/17 20:19 Active Intake and Output [RC] QSHIFT Care 09/24/17 20:19 Active Oxygen Therapy [RC] PRN Care 09/24/17 20:19 Active RT Aerosol Therapy [RC] ASDIRECTED Care 09/24/17 20:22 Active Up With Assistance [RC] ASDIRECTED Care 09/24/17 20:19 Active Up ad Mary [RC] ASDIRECTED Care 09/24/17 20:19 Active VTE/DVT Education [RC] PER UNIT ROUTINE Care 09/24/17 20:19 Active Vital Signs [RC] Q4H Care 09/24/17 20:19 Active Consult to Case Management [CONS] Routine Cons 09/24/17 20:22 Active Consult to Director Of Guidance [CONS] Routine Cons 09/24/17 20:22 Active Consult to Spiritual Care [CONS] Routine Cons 09/24/17 20:22 Active OT Evaluation and Treatment [CONS] Routine Cons 09/24/17 20:22 Active PT Evaluation and Treatment [CONS] Routine Cons 09/24/17 20:22 Active Regular Diet [DIET] Diet 09/24/17 Dinner Active BASIC METABOLIC PANEL,BMP [CHEM] AM Lab 09/25/17 05:11 Ordered BASIC METABOLIC PANEL,BMP [CHEM] AM Lab 09/26/17 05:11 Ordered BASIC METABOLIC PANEL,BMP [CHEM] AM Lab 09/27/17 05:11 Ordered C-REACTIVE PROTEIN [CHEM] AM Lab 09/25/17 05:11 Ordered C-REACTIVE PROTEIN [CHEM] AM Lab 09/26/17 05:11 Ordered C-REACTIVE PROTEIN [CHEM] AM Lab 09/27/17 05:11 Ordered C-REACTIVE PROTEIN [CHEM] AM Lab 09/28/17 05:11 Ordered CBC WITH AUTO DIFF [HEME] AM Lab 09/25/17 05:11 Ordered CBC WITH AUTO DIFF [HEME] AM Lab 09/26/17 05:11 Ordered CBC WITH AUTO DIFF [HEME] AM Lab 09/27/17 05:11 Ordered CBC WITH AUTO DIFF [HEME] AM Lab 09/28/17 05:11 Ordered CELL COUNT,CSF [BF] Stat Lab 09/24/17 19:05 Ordered CULTURE BLOOD [BC] Stat Lab 09/24/17 19:43 Received CULTURE BLOOD [BC] Stat Lab 09/24/17 20:05 Received CULTURE CSF + SMEAR [RM] Stat Lab 09/24/17 18:48 Ordered CULTURE URINE [RM] Stat Lab 09/24/17 19:08 Ordered GLUCOSE,CSF [BF] Stat Lab 09/24/17 19:05 COMP HOLD CSF IN LAB TUBE 1 [BF] Stat Lab 09/24/17 19:05 Ordered HOLD CSF IN LAB TUBE 2 [BF] Stat Lab 09/24/17 19:05 Ordered MAGNESIUM [CHEM] AM Lab 09/25/17 05:11 Ordered MAGNESIUM [CHEM] AM Lab 09/26/17 05:11 Ordered MAGNESIUM [CHEM] AM Lab 09/27/17 05:11 Ordered PROTEIN,CSF [BF] Stat Lab 09/24/17 19:05 COMP Acetaminophen [Tylenol] Med 09/24/17 20:19 Active 650 mg PO Q4H PRN Albuterol/Ipratropium [DuoNeb 3.0-0.5 MG/3 ML] Med 09/24/17 20:19 Active 3 ml NEB Q4H PRN Bisacodyl [Dulcolax] Med 09/24/17 20:19 Active 5 mg PO DAILY PRN Docusate Sodium [Colace] Med 09/24/17 20:19 Active 100 mg PO BID PRN Docusate Sodium/Sennosides [Senna Plus] Med 09/24/17 20:19 Active 1 tab PO BID PRN HYDROmorphone [Dilaudid] Med 09/24/17 20:19 Active 0.5 mg IVPUSH Q2H PRN LORazepam [Ativan] Med 09/24/17 20:23 Active 2 mg IVPUSH Q4H PRN Levothyroxine Med 09/25/17 06:00 Active 150 mcg PO ACBRK Magnesium Rep Pharmacy to Dose [Pharmacy to Dose - Med 09/24/17 20:30 Ordered Magnesium Replacement] 1 dose .XX ASDIRECTED Magnesium Sulfate/D5W [Magnesium 1 GM in D5W 100 ML] 1 Med 09/24/17 20:25 Active gm Premix Bag 1 bag IV ONETIME Metoprolol Tartrate [Lopressor] Med 09/24/17 20:23 Active 5 mg IVPUSH Q4H PRN Ondansetron [Zofran] Med 09/24/17 20:19 Active 4 mg IV Q6H PRN Polyethylene Glycol 3350 [MiraLAX] Med 09/24/17 20:19 Active 17 gm PO DAILY PRN Potassium Rep Pharmacy to Dose [Pharmacy to Dose - Med 09/24/17 20:30 Pending Potassium Replacement] 1 dose .XX ASDIRECTED Promethazine [Phenergan] 12.5 mg Med 09/24/17 20:19 Active Sodium Chloride 0.9% [Normal Saline] 50 ml IV Q6H Sodium Chloride 0.9% [Normal Saline] 1,000 ml Med 09/24/17 20:30 Active IV ASDIRECTED Temazepam [Restoril] Med 09/24/17 20:19 Active 15 mg PO BEDTIME PRN Topiramate [Topamax] Med 09/24/17 21:00 Active 50 mg PO BID cefTRIAXone [Rocephin] 2 gm Med 09/24/17 19:45 Active Sodium Chloride 0.9% [Normal Saline] 100 ml IV Q24H hydrALAZINE [Apresoline] Med 09/24/17 20:23 Active 20 mg IVPUSH Q4H PRN oxyCODONE Med 09/24/17 20:19 Pending 5 mg PO Q4H PRN Blood Culture x2 Reflex Set [OM.PC] Stat Oth 09/24/17 19:03 Ordered Sequential Compression Device [OM.PC] Per Unit Routine Oth 09/24/17 20:19 Ordered Resuscitation Status Routine Resus Stat 09/24/17 20:19 Ordered Medication Orders Acetaminophen (Tylenol) 650 mg PO Q4H PRN PRN Reason: Pain (Mild 1-3)/fever Albuterol/Ipratropium (Duoneb 3.0-0.5 Mg/3 Ml) 3 ml NEB Q4H PRN PRN Reason: Shortness Of Breath/wheezing Bisacodyl (Dulcolax) 5 mg PO DAILY PRN PRN Reason: Constipation Docusate Sodium (Colace) 100 mg PO BID PRN PRN Reason: Constipation Hydralazine HCl (Apresoline) 20 mg IVPUSH Q4H PRN PRN Reason: Hypertension Hydromorphone HCl (Dilaudid) 0.5 mg IVPUSH Q2H PRN PRN Reason: Pain (severe 7-10) Ceftriaxone Sodium 2 gm/ (Sodium Chloride) 100 mls @ 100 mls/hr IV Q24H TONY Last Admin: 09/24/17 19:43 Dose: 100 mls/hr Promethazine HCl 12.5 mg/ (Sodium Chloride) 50.5 mls @ 100 mls/hr IV Q6H PRN PRN Reason: Nausea/Vomiting Sodium Chloride (Normal Saline) 1,000 mls @ 125 mls/hr IV ASDIRECTED [facility] Magnesium Sulfate/Dextrose 1 (gm/ Premix) 100 mls @ 100 mls/hr IV ONETIME ONE Stop: 09/24/17 21:24 Levothyroxine Sodium (Levothyroxine) 150 mcg PO ACBRK [facility] Lorazepam (Ativan) 2 mg IVPUSH Q4H PRN PRN Reason: Seizures Magnesium Sulfate (Pharmacy To Dose - Magnesium Replacement) 1 dose .XX ASDIRECTED [facility] Metoprolol Tartrate (Lopressor) 5 mg IVPUSH Q4H PRN PRN Reason: Tachycardia Ondansetron HCl (Zofran) 4 mg IV Q6H PRN PRN Reason: Nausea/Vomiting Oxycodone HCl (Oxycodone) 5 mg PO Q4H PRN PRN Reason: Pain (moderate 4-6) Polyethylene Glycol (Miralax) 17 gm PO DAILY PRN PRN Reason: Constipation Potassium Chloride (Pharmacy To Dose - Potassium Replacement) 1 dose .XX ASDIRECTED [facility] Senna/Docusate Sodium (Senna Plus) 1 tab PO BID PRN PRN Reason: Constipation Temazepam (Restoril) 15 mg PO BEDTIME PRN PRN Reason: Sleep Topiramate (Topamax) 50 mg PO BID [facility] Assessment/Plan Comment:: Assessment/Plan: Acute: Severe Headache - Suspect 2/2 S/p Right Eye Surgery - Acute on Chronic - Per patient she had a recent eye surgery 3-4 days ago in [place] by Dr. Briggs - Personally tried calling him but w/o any success - Head CT scan down in [place] -negative for acute abnormal findings - MRI/MRA outside the window of services - R/o Meningitis with pending LP done in ED - Continue IV Rocephin and Vancomycin - Spoke to Dr. Santana (Neurology in [place]), for tele-consult; she recommends a cocktail of Toradol 30, Benadryl of 50 and Reglan of 10 x 1 and if no response then either Magnesium 1 gram IV x1, depakote IV or Thorazine 10 mg IV Q8H PRN - Will increase dose of her Topamax to 50 mg po BID - Patient and aware we have no MR capability on weekends UTI - UA pos for UTI - Already on Rocephin - Pending UA Cx/Sx Chronic: TBI Short term Memory Loss Post TBI Concussion Chronic [place] Plan: Admit to ICU Resume Home Meds Routine AM Labs Seizure Precautions S/p LP awaiting lab results PT/OT eval SW/CM for d/c planning Code status: 1
[2017-09-24] MEDS ORDERED: Vancomycin 500 MG SDV IV SCH (23:00)
[2017-09-24] MEDS: Topiramate 25 MG Tab PO SCH (23:03)
[2017-09-25] MEDS: Acetaminophen 325 MG Tab PO PRN ×2 (03:23→09:54)
[2017-09-25] MEDS: Levothyroxine 150 MCG Tab PO SCH (05:12)
[2017-09-25] MEDS: Sodium Chloride 0.9% 1,000 ML IV SCH (05:12)
[2017-09-25] MEDS: Topiramate 25 MG Tab PO SCH ×2 (08:28→20:18)
[2017-09-25] MEDS: Saccharomyces Boulardii (Probiotic) 250 MG Cap PO SCH ×2 (08:28→20:17)
[2017-09-25] MEDS ORDERED: Levothyroxine 150 MCG Tab PO SCH (09:00)
[2017-09-25] MEDS ORDERED: Vancomycin 1.75 GM in Sodium Chloride 0.9% 500 ML IV SCH (09:00)
[2017-09-25] MEDS ORDERED: TOPIRAMATE 50 MG PO SCH (09:00)
[2017-09-25] MEDS ORDERED: cefTRIAXone 2 GM in Sodium Chloride 0.9% 100 ML IV SCH (09:00)
[2017-09-25] MEDS: LIOTHYRONINE PO SCH ×2 (11:21→20:17)
[2017-09-25] MEDS ORDERED: Acetaminophen/Butalbital/Caffeine 325-50-40 MG Tab PO PRN (11:29)
--- NOTE | 2017-09-25 16:04 | PCM.PN ---
- General Info Date of Service: 09/25/17 Admission Dx/Problem (Free Text): Admission Diagnosis/Problem Admission Diagnosis/Problem Headache Subjective Update: Follow Up Functional Status: Reports: Pain Controlled, Tolerating Diet, Urinating. Denies : New Symptoms - Review of Systems General: Denies: Fever, Weakness, Fatigue, Malaise HEENT: Reports: Headaches (but better), Other (no photophobia). Denies: Eye Pain, Visual Changes Pulmonary: Denies: Shortness of Breath Cardiovascular: Denies: Chest Pain, Palpitations, Lightheadedness Gastrointestinal: Denies: Abdominal Pain, Decreased Appetite, Nausea, Vomiting Genitourinary: Reports: No Symptoms Musculoskeletal: Reports: No Symptoms Skin: Reports: No Symptoms Neurological: Reports: Headache. Denies: Confusion, Numbness, Seizure, Trouble Speaking, Difficulty Walking, Weakness, Change in Speech, Gait Disturbance Psychiatric: Denies: Depression, Anxiety, Agitation, Hallucinations Systems Review Comment:: She had an uneventful night. She slept good. She looks much better this morning. She alert/awake, no photophobia, comfortable sitting up in bed eating breakfast. She seems to be near baseline with her headache. 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 She is afebrile w/o leukocytosis. Her CRP improved to 13.2 from 17.9 on admission. - Patient Data Vitals - Most Recent: Last Vital Signs Temp 36.3 C 09/25/17 14:07 Pulse 68 09/25/17 14:07 Resp 16 09/25/17 14:07 BP 124/65 09/25/17 14:07 Pulse Ox 100 09/25/17 14:07 Weight - Most Recent: 116.256 kg I&O - Last 24 Hours: Intake & Output 09/25/17 09/25/17 09/25/17 06:59 14:59 22:59 Intake Total 1475 1305 Output Total 550 Balance 925 1305 Lab Results Last 24 Hours: Laboratory Results - last 24 hr 09/24/17 09/24/17 09/24/17 Range/Units 17:26 17:26 19:05 WBC 11.60 H (3.98-10.04) K/mm3 RBC 4.91 (3.98-5.22) M/mm3 Hgb 13.5 (11.2-15.7) gm/L Hct 41.6 (34.1-44.9) % MCV 84.7 (79.4-94.8) fl MCH 27.5 (25.6-32.2) pg MCHC 32.5 (32.2-35.5) g/dl RDW Std Deviation 42.8 (36.4-46.3) fL Plt Count 369 (182-369) K/mm3 MPV 8.3 L (9.4-12.3) fl Neut % (Auto) 71.7 H (34.0-71.1) % Lymph % (Auto) 15.6 L (19.3-51.7) % [place] % (Auto) 10.3 (4.7-12.5) % Eos % (Auto) 1.8 (0.7-5.8) Baso % (Auto) 0.3 (0.1-1.2) % Neut # (Auto) 8.31 H (1.56-6.13) K/mm3 Lymph # (Auto) 1.81 (1.18-3.74) K/mm3 [place] # (Auto) 1.20 H (0.24-0.36) K/mm3 Eos # (Auto) 0.21 (0.04-0.36) K/mm3 Baso # (Auto) 0.03 (0.01-0.08) K/mm3 Sodium 142 (136-145) mEq/L Potassium 3.9 (3.5-5.1) mEq/L Chloride 106 (98-107) mEq/L Carbon Dioxide 23 (21-32) mEq/L Anion Gap 16.9 H (5-15) BUN 10 (7-18) mg/dL Creatinine 1.3 H (0.55-1.02) mg/dL Est Cr Clr Drug Dosing 60.12 mL/min Estimated GFR (MDRD) 45 (>60) mL/min BUN/Creatinine Ratio 7.7 L (14-18) Glucose 87 (74-106) mg/dL Calcium 9.0 (8.5-10.1) mg/dL Magnesium (1.8-2.4) mg/dl Total Bilirubin 0.5 (0.2-1.0) mg/dL AST 50 H (15-37) U/L ALT 166 H (14-59) U/L Alkaline Phosphatase 211 H (46-116) U/L C-Reactive Protein 17.9 H* (<1.0) mg/dL Total Protein 7.5 (6.4-8.2) g/dl Albumin 3.3 L (3.4-5.0) g/dl Globulin 4.2 gm/dL Albumin/Globulin Ratio 0.8 L (1-2) Urine Color (Yellow) Urine Appearance (Clear) Urine pH (5.0-8.0) Ur Specific [place] (1.005-1.030) Urine Protein (Negative) Urine Glucose (UA) (Negative) Urine Ketones (Negative) Urine Occult Blood (Negative) Urine Nitrite (Negative) Urine Bilirubin (Negative) Urine Urobilinogen (0.2-1.0) Ur Leukocyte Esterase (Negative) Urine RBC (0-5) /hpf Urine WBC (0-5) /hpf Ur Epithelial Cells (0-5) /hpf Urine Bacteria (FEW) /hpf Urine Mucus (FEW) /hpf CSF Tube Number 2 CSF Volume 2 ml CSF Appearance Clear (CLEAR) CSF Color Colorless CSF Supernatant Appear No xanthochromia CSF WBC 3 (0-8) /uL CSF RBC 0 (0-8) /mm3 CSF Seg Neutrophils 1.0 (0-5) CSF Lymphocytes 9.0 H (0-8) CSF Monos/Macrophages 4.0 (0-5) CSF Glucose (40-70) mg/dl CSF Total Protein (15-45) mg/dl 09/24/17 09/25/17 09/25/17 Range/Units 19:05 05:14 05:14 WBC 9.36 (3.98-10.04) K/mm3 RBC 4.40 (3.98-5.22) M/mm3 Hgb 12.2 (11.2-15.7) gm/L Hct 37.5 (34.1-44.9) % MCV 85.2 (79.4-94.8) fl MCH 27.7 (25.6-32.2) pg MCHC 32.5 (32.2-35.5) g/dl RDW Std Deviation 42.6 (36.4-46.3) fL Plt Count 348 (182-369) K/mm3 MPV 8.3 L (9.4-12.3) fl Neut % (Auto) 68.3 (34.0-71.1) % Lymph % (Auto) 17.5 L (19.3-51.7) % Leake % (Auto) 10.8 (4.7-12.5) % Eos % (Auto) 3.0 (0.7-5.8) Baso % (Auto) 0.2 (0.1-1.2) % Neut # (Auto) 6.39 H (1.56-6.13) K/mm3 Lymph # (Auto) 1.64 (1.18-3.74) K/mm3 [place] # (Auto) 1.01 H (0.24-0.36) K/mm3 Eos # (Auto) 0.28 (0.04-0.36) K/mm3 Baso # (Auto) 0.02 (0.01-0.08) K/mm3 Sodium 141 (136-145) mEq/L Potassium 3.6 (3.5-5.1) mEq/L Chloride 109 H (98-107) mEq/L Carbon Dioxide 21 (21-32) mEq/L Anion Gap 14.6 (5-15) BUN 11 (7-18) mg/dL Creatinine 1.1 H (0.55-1.02) mg/dL Est Cr Clr Drug Dosing 71.05 mL/min Estimated GFR (MDRD) 55 (>60) mL/min BUN/Creatinine Ratio 10.0 L (14-18) Glucose 89 (74-106) mg/dL Calcium 7.7 L (8.5-10.1) mg/dL Magnesium 2.3 (1.8-2.4) mg/dl Total Bilirubin (0.2-1.0) mg/dL AST (15-37) U/L ALT (14-59) U/L Alkaline Phosphatase (46-116) U/L C-Reactive Protein 13.2 H* (<1.0) mg/dL Total Protein (6.4-8.2) g/dl Albumin (3.4-5.0) g/dl Globulin gm/dL Albumin/Globulin Ratio (1-2) Urine Color (Yellow) Urine Appearance (Clear) Urine pH (5.0-8.0) Ur Specific [place] (1.005-1.030) Urine Protein (Negative) Urine Glucose (UA) (Negative) Urine Ketones (Negative) Urine Occult Blood (Negative) Urine Nitrite (Negative) Urine Bilirubin (Negative) Urine Urobilinogen (0.2-1.0) Ur Leukocyte Esterase (Negative) Urine RBC (0-5) /hpf Urine WBC (0-5) /hpf Ur Epithelial Cells (0-5) /hpf Urine Bacteria (FEW) /hpf Urine Mucus (FEW) /hpf CSF Tube Number CSF Volume ml CSF Appearance (CLEAR) CSF Color CSF Supernatant Appear CSF WBC (0-8) /uL CSF RBC (0-8) /mm3 CSF Seg Neutrophils (0-5) CSF Lymphocytes (0-8) CSF Monos/Macrophages (0-5) CSF Glucose 56.0 (40-70) mg/dl CSF Total Protein 39.6 (15-45) mg/dl 09/25/17 Range/Units 11:21 WBC (3.98-10.04) K/mm3 RBC (3.98-5.22) M/mm3 Hgb (11.2-15.7) gm/L Hct (34.1-44.9) % MCV (79.4-94.8) fl MCH (25.6-32.2) pg MCHC (32.2-35.5) g/dl RDW Std Deviation (36.4-46.3) fL Plt Count (182-369) K/mm3 MPV (9.4-12.3) fl Neut % (Auto) (34.0-71.1) % Lymph % (Auto) (19.3-51.7) % [place]ake % (Auto) (4.7-12.5) % Eos % (Auto) (0.7-5.8) Baso % (Auto) (0.1-1.2) % Neut # (Auto) (1.56-6.13) K/mm3 Lymph # (Auto) (1.18-3.74) K/mm3 [place]ake # (Auto) (0.24-0.36) K/mm3 Eos # (Auto) (0.04-0.36) K/mm3 Baso # (Auto) (0.01-0.08) K/mm3 Sodium (136-145) mEq/L Potassium (3.5-5.1) mEq/L Chloride (98-107) mEq/L Carbon Dioxide (21-32) mEq/L Anion Gap (5-15) BUN (7-18) mg/dL Creatinine (0.55-1.02) mg/dL Est Cr Clr Drug Dosing mL/min Estimated GFR (MDRD) (>60) mL/min BUN/Creatinine Ratio (14-18) Glucose (74-106) mg/dL Calcium (8.5-10.1) mg/dL Magnesium (1.8-2.4) mg/dl Total Bilirubin (0.2-1.0) mg/dL AST (15-37) U/L ALT (14-59) U/L Alkaline Phosphatase (46-116) U/L C-Reactive Protein (<1.0) mg/dL Total Protein (6.4-8.2) g/dl Albumin (3.4-5.0) g/dl Globulin gm/dL Albumin/Globulin Ratio (1-2) Urine Color Yellow (Yellow) Urine Appearance Clear (Clear) Urine pH 7.0 (5.0-8.0) Ur Specific [place] 1.010 (1.005-1.030) Urine Protein Negative (Negative) Urine Glucose (UA) Negative (Negative) Urine Ketones Negative (Negative) Urine Occult Blood Negative (Negative) Urine Nitrite Negative (Negative) Urine Bilirubin Negative (Negative) Urine Urobilinogen 0.2 (0.2-1.0) Ur Leukocyte Esterase 2+ H (Negative) Urine RBC 0-5 (0-5) /hpf Urine WBC 10-20 H (0-5) /hpf Ur Epithelial Cells 5-10 H (0-5) /hpf Urine Bacteria Few (FEW) /hpf Urine Mucus Few (FEW) /hpf CSF Tube Number CSF Volume ml CSF Appearance (CLEAR) CSF Color CSF Supernatant Appear CSF WBC (0-8) /uL CSF RBC (0-8) /mm3 CSF Seg Neutrophils (0-5) CSF Lymphocytes (0-8) CSF Monos/Macrophages (0-5) CSF Glucose (40-70) mg/dl CSF Total Protein (15-45) mg/dl [place] Results Last 24 Hours: Microbiology 09/24/17 18:48 Gram Stain - Final Cerebral Spinal Fluid CSF Culture - Preliminary NO GROWTH AFTER 1 DAY 09/24/17 20:05 Anaerobic Blood Culture - Final Blood - Venous Med Orders - Current: Current Medications Acetaminophen (Tylenol) 650 mg PO Q4H PRN PRN Reason: Pain (Mild 1-3)/fever Last Admin: 09/25/17 09:54 Dose: 650 mg Acetaminophen/Butalbital/Caffeine (Fioricet 325-50-40 Mg) 2 tab PO Q6H PRN PRN Reason: Headache Last Admin: 09/25/17 11:34 Dose: 2 tab Albuterol/Ipratropium (Duoneb 3.0-0.5 Mg/3 Ml) 3 ml NEB Q4H PRN PRN Reason: Shortness Of Breath/wheezing Bisacodyl (Dulcolax) 5 mg PO DAILY PRN PRN Reason: Constipation Calcium Carbonate/Glycine (Calcium Carbonate) 1,200 mg PO BIDMEALS [facility] Docusate Sodium (Colace) 100 mg PO BID PRN PRN Reason: Constipation Hydralazine HCl (Apresoline) 20 mg IVPUSH Q4H PRN PRN Reason: Hypertension Hydromorphone HCl (Dilaudid) 0.5 mg IVPUSH Q2H PRN PRN Reason: Pain (severe 7-10) Promethazine HCl 12.5 mg/ (Sodium Chloride) 50.5 mls @ 100 mls/hr IV Q6H PRN PRN Reason: Nausea/Vomiting Ceftriaxone Sodium 1 gm/ (Dextrose/Water) 100 mls @ 200 mls/hr IV Q12H [facility] Levothyroxine Sodium (Levothyroxine) 150 mcg PO ACBRK [facility] Last Admin: 09/25/17 05:12 Dose: 150 mcg Liothyronine Sodium (Cytomel) 0 mcg PO BID [facility] Last Admin: 09/25/17 11:21 Dose: 5 mcg Lorazepam (Ativan) 2 mg IVPUSH Q4H PRN PRN Reason: Seizures Magnesium Sulfate (Pharmacy To Dose - Magnesium Replacement) 1 dose .XX ASDIRECTED [facility] Metoprolol Tartrate (Lopressor) 5 mg IVPUSH Q4H PRN PRN Reason: Tachycardia Ondansetron HCl (Zofran) 4 mg IV Q6H PRN PRN Reason: Nausea/Vomiting Polyethylene Glycol (Miralax) 17 gm PO DAILY PRN PRN Reason: Constipation Potassium Chloride (Pharmacy To Dose - Potassium Replacement) 1 dose .XX ASDIRECTED [facility] Saccharomyces Boulardii (Florastor) 250 mg PO BID [facility] Last Admin: 09/25/17 08:28 Dose: 250 mg Senna/Docusate Sodium (Senna Plus) 1 tab PO BID PRN PRN Reason: Constipation Temazepam (Restoril) 15 mg PO BEDTIME PRN PRN Reason: Sleep Topiramate (Topamax) 50 mg PO BID [facility] Last Admin: 09/25/17 08:28 Dose: 50 mg Discontinued Medications Ceftriaxone Sodium (Rocephin) 2 gm IVPUSH Q24H [facility] Last Admin: 09/24/17 21:54 Dose: Not Given Diphenhydramine HCl (Benadryl) 50 mg IVPUSH ONETIME ONE Stop: 09/24/17 20:25 Last Admin: 09/24/17 20:48 Dose: 50 mg Fentanyl (Sublimaze) Confirm Administered Dose 100 mcg .ROUTE .STK-MED ONE Stop: 09/24/17 17:34 Last Admin: 09/24/17 18:58 Dose: Not Given Fentanyl (Sublimaze) 100 mcg IVPUSH ONETIME ONE Stop: 09/24/17 18:55 Last Admin: 09/24/17 18:20 Dose: 100 mcg Hydromorphone HCl (Dilaudid) 1 mg IVPUSH ONETIME ONE Stop: 09/24/17 17:14 Last Admin: 09/24/17 17:20 Dose: 1 mg Vancomycin HCl 2 gm/ Sodium (Chloride) 250 mls @ 250 mls/hr IV ONETIME ONE Stop: 09/24/17 20:05 Last Admin: 09/24/17 20:55 Dose: 250 mls/hr Ceftriaxone Sodium 2 gm/ (Sodium Chloride) 100 mls @ 100 mls/hr IV Q24H [facility] Last Admin: 09/24/17 19:43 Dose: 100 mls/hr Sodium Chloride (Normal Saline) 1,000 mls @ 125 mls/hr IV ASDIRECTED [facility] Last Admin: 09/25/17 05:12 Dose: 125 mls/hr Magnesium Sulfate/Dextrose 1 (gm/ Premix) 100 mls @ 100 mls/hr IV ONETIME ONE Stop: 09/24/17 21:24 Last Admin: 09/24/17 22:09 Dose: 100 mls/hr Ceftriaxone Sodium 2 gm/ (Sodium Chloride) 100 mls @ 200 mls/hr IV Q12H [facility] Last Admin: 09/25/17 08:27 Dose: 200 mls/hr Vancomycin HCl 1.75 gm/ Sodium (Chloride) 500 mls @ 250 mls/hr IV Q12H [facility] Last Admin: 09/25/17 08:59 Dose: 250 mls/hr Ketorolac Tromethamine (Toradol) 30 mg IVPUSH ONETIME ONE Stop: 09/24/17 20:25 Last Admin: 09/24/17 20:48 Dose: 30 mg Levothyroxine Sodium (Levothyroxine) 150 mcg PO DAILY [facility] Lidocaine/Epinephrine (Xylocaine 1% With Epinephrine 1:100,000) 20 ml INJECT ONETIME ONE Stop: 09/24/17 17:21 Last Admin: 09/24/17 18:57 Dose: 20 ml Metoclopramide HCl (Reglan) 10 mg IVPUSH ONETIME ONE Stop: 09/24/17 20:26 Last Admin: 09/24/17 20:48 Dose: 10 mg Midazolam HCl (Versed 1 Mg/Ml) Confirm Administered Dose 6 mg .ROUTE .STK-MED ONE Stop: 09/24/17 17:35 Last Admin: 09/24/17 18:58 Dose: Not Given Midazolam HCl (Versed 1 Mg/Ml) 2 mg IVPUSH ONETIME ONE Stop: 09/24/17 18:55 Last Admin: 09/24/17 18:35 Dose: 2 mg Non-Formulary Medication (Topiramate) 50 mg PO DAILY [facility] Oxycodone HCl (Oxycodone) 5 mg PO Q4H PRN PRN Reason: Pain (moderate 4-6) Pantoprazole Sodium (Protonix Iv) 40 mg IVPUSH ONETIME ONE Stop: 09/24/17 20:20 Last Admin: 09/24/17 22:09 Dose: 40 mg Vancomycin HCl (Pharmacy To Dose - Vancomycin) 1 dose .XX ASDIRECTED TONY - Exam General: Alert, Oriented, Cooperative, No Acute Distress HEENT: Pupils Equal, Pupils Reactive, EOMI, Mucous Membr. Moist/[place] Neck: Supple, Trachea Midline, No JVD, No Thyromegaly Lungs: Clear to Auscultation, Normal Respiratory Effort Cardiovascular: Regular Rate, Regular Rhythm GI/Abdominal Exam: Normal Bowel Sounds, Soft, Non-Tender, No Organomegaly, No Distention, No Abnormal Bruit (Female) Exam: Deferred Back Exam: Normal Inspection, Decreased Range of Motion Extremities: Normal Inspection, Normal Range of Motion, Non-Tender, No Pedal Edema, Normal Capillary Refill Peripheral Pulses: 3+: Posterior Tibial (L), Posterior Tibial (R), Dorsalis Pedis (L), Dorsalis Pedis (R) Skin: Warm, Dry, Intact Neurological: No New Focal Deficit Psy/Mental Status: Alert, Normal Affect, Normal Mood - Problem List Review Problem List Initiated/Reviewed/Updated: Yes - My Orders Last 24 Hours: My Active Orders 09/24/17 20:19 Height and Weight [RC] 04 Intake and Output [RC] 04,16 Oxygen Therapy [RC] PRN Up With Assistance [RC] ASDIRECTED Up ad Mary [RC] ASDIRECTED VTE/DVT Education [RC] BID Vital Signs [RC] 03,09,15,21 Acetaminophen [Tylenol] 650 mg PO Q4H PRN Albuterol/Ipratropium [DuoNeb 3.0-0.5 MG/3 ML] 3 ml NEB Q4H PRN Bisacodyl [Dulcolax] 5 mg PO DAILY PRN Docusate Sodium [Colace] 100 mg PO BID PRN Docusate Sodium/Sennosides [Senna Plus] 1 tab PO BID PRN HYDROmorphone [Dilaudid] 0.5 mg IVPUSH Q2H PRN Ondansetron [Zofran] 4 mg IV Q6H PRN Polyethylene Glycol 3350 [MiraLAX] 17 gm PO DAILY PRN Promethazine [Phenergan] 12.5 mg Sodium Chloride 0.9% [Normal Saline] 50 ml IV Q6H Temazepam [Restoril] 15 mg PO BEDTIME PRN Sequential Compression Device [OM.PC] Per Unit Routine Resuscitation Status Routine 09/24/17 20:22 RT Aerosol Therapy [RC] ASDIRECTED Consult to Case Management [CONS] Routine Consult to Game Farm [employer] [CONS] Routine Consult to Spiritual Care [CONS] Routine OT Evaluation and Treatment [CONS] Routine PT Evaluation and Treatment [CONS] Routine 09/24/17 20:23 LORazepam [Ativan] 2 mg IVPUSH Q4H PRN Metoprolol Tartrate [Lopressor] 5 mg IVPUSH Q4H PRN hydrALAZINE [Apresoline] 20 mg IVPUSH Q4H PRN 09/24/17 20:30 Magnesium Rep Pharmacy to Dose [Pharmacy to Dose - Magnesium Replacement] 1 dose .XX ASDIRECTED Potassium Rep Pharmacy to Dose [Pharmacy to Dose - Potassium Replacement] 1 dose .XX ASDIRECTED 09/24/17 21:00 Topiramate [Topamax] 50 mg PO BID 09/24/17 Dinner Regular Diet [DIET] 09/25/17 06:00 Levothyroxine 150 mcg PO ACBRK 09/25/17 09:00 Saccharomyces Boulardii [Florastor] 250 mg PO BID 09/25/17 09:35 Admission Status [Patient Status] [ADT] Routine 09/25/17 11:00 Liothyronine [Cytomel] 0 mcg PO BID 09/25/17 11:29 Acetaminophen/Butalbital/Caff [Fioricet 325-50-40 MG] 2 tab PO Q6H PRN 09/25/17 17:00 Calcium Carbonate 1,200 mg PO BIDMEALS 09/25/17 21:00 cefTRIAXone [Rocephin] 1 gm Dextrose 5% in Water 100 ml IV Q12H 09/26/17 05:11 BASIC METABOLIC PANEL,BMP [CHEM] AM C-REACTIVE PROTEIN [CHEM] AM CBC WITH AUTO DIFF [HEME] AM MAGNESIUM [CHEM] AM 09/27/17 05:11 BASIC METABOLIC PANEL,BMP [CHEM] AM C-REACTIVE PROTEIN [CHEM] AM CBC WITH AUTO DIFF [HEME] AM MAGNESIUM [CHEM] AM 09/28/17 05:11 C-REACTIVE PROTEIN [CHEM] AM CBC WITH AUTO DIFF [HEME] AM - Plan Plan:: Assessment/Plan: Acute: Severe Headache, Improved - Suspect 2/2 S/p Right Eye Surgery - Acute on Chronic - Had a recent eye surgery 3-4 days ago in [place] by Dr. Briggs - Personally tried calling him but w/o any success - Head CT scan down in [place] -negative for acute abnormal findings - MRI/MRA outside the window of services; no services on weekends - R/o Meningitis with pending LP done in ED - Continue IV Rocephin 1 gram Daily and d/c Vancomycin - Spoke to Dr. 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 Continue current treatment Routine AM Labs Seizure Precautions Awaiting UA results from [facility] PT/OT eval if not already done SW/CM for d/c planning Encourage to ambulate as tolerated Code status: 1 Possible d/c in 1-2 days
[2017-09-25] MEDS: Calcium Carbonate 600 MG Tab PO SCH (16:05)
[2017-09-25] MEDS: cefTRIAXone 1 GM in Dextrose 5% in Water 100 ML IV SCH ×2 (20:17)
--- NOTE | 2017-09-26 04:25 | PCM.PN ---
- General Info Date of Service: 09/26/17 Admission Dx/Problem (Free Text): Admission Diagnosis/Problem Admission Diagnosis/Problem Headache Subjective Update: Follow Up Functional Status: Reports: Pain Controlled, Tolerating Diet, Ambulating, Urinating. Denies: New Symptoms - Patient Data Vitals - Most Recent: Last Vital Signs Temp 36.3 C 09/25/17 14:07 Pulse 68 09/25/17 14:07 Resp 16 09/25/17 14:07 BP 124/65 09/25/17 14:07 Pulse Ox 100 09/25/17 14:07 Weight - Most Recent: 116.256 kg I&O - Last 24 Hours: Intake & Output 09/25/17 09/25/17 09/26/17 14:59 22:59 06:59 Intake Total 1305 1600 Output Total 500 Balance 1305 1100 Lab Results Last 24 Hours: Laboratory Results - last 24 hr 09/25/17 09/25/17 09/25/17 Range/Units 05:14 05:14 11:21 WBC 9.36 (3.98-10.04) K/mm3 RBC 4.40 (3.98-5.22) M/mm3 Hgb 12.2 (11.2-15.7) gm/L Hct 37.5 (34.1-44.9) % MCV 85.2 (79.4-94.8) fl MCH 27.7 (25.6-32.2) pg MCHC 32.5 (32.2-35.5) g/dl RDW Std Deviation 42.6 (36.4-46.3) fL Plt Count 348 (182-369) K/mm3 MPV 8.3 L (9.4-12.3) fl Neut % (Auto) 68.3 (34.0-71.1) % Lymph % (Auto) 17.5 L (19.3-51.7) % [place] % (Auto) 10.8 (4.7-12.5) % Eos % (Auto) 3.0 (0.7-5.8) Baso % (Auto) 0.2 (0.1-1.2) % Neut # (Auto) 6.39 H (1.56-6.13) K/mm3 Lymph # (Auto) 1.64 (1.18-3.74) K/mm3 [place] # (Auto) 1.01 H (0.24-0.36) K/mm3 Eos # (Auto) 0.28 (0.04-0.36) K/mm3 Baso # (Auto) 0.02 (0.01-0.08) K/mm3 Sodium 141 (136-145) mEq/L Potassium 3.6 (3.5-5.1) mEq/L Chloride 109 H (98-107) mEq/L Carbon Dioxide 21 (21-32) mEq/L Anion Gap 14.6 (5-15) BUN 11 (7-18) mg/dL Creatinine 1.1 H (0.55-1.02) mg/dL Est Cr Clr Drug Dosing 71.05 mL/min Estimated GFR (MDRD) 55 (>60) mL/min BUN/Creatinine Ratio 10.0 L (14-18) Glucose 89 (74-106) mg/dL Calcium 7.7 L (8.5-10.1) mg/dL Magnesium 2.3 (1.8-2.4) mg/dl C-Reactive Protein 13.2 H* (<1.0) mg/dL Urine Color Yellow (Yellow) Urine Appearance Clear (Clear) Urine pH 7.0 (5.0-8.0) Ur Specific [place] 1.010 (1.005-1.030) Urine Protein Negative (Negative) Urine Glucose (UA) Negative (Negative) Urine Ketones Negative (Negative) Urine Occult Blood Negative (Negative) Urine Nitrite Negative (Negative) Urine Bilirubin Negative (Negative) Urine Urobilinogen 0.2 (0.2-1.0) Ur Leukocyte Esterase 2+ H (Negative) Urine RBC 0-5 (0-5) /hpf Urine WBC 10-20 H (0-5) /hpf Ur Epithelial Cells 5-10 H (0-5) /hpf Urine Bacteria Few (FEW) /hpf Urine Mucus Few (FEW) /hpf [place] Results Last 24 Hours: Microbiology 09/24/17 20:05 Aerobic Blood Culture - Preliminary Blood - Venous NO GROWTH AFTER 1 DAY Anaerobic Blood Culture - Final 09/24/17 19:43 Aerobic Blood Culture - Preliminary Blood - Venous - Lab Draw NO GROWTH AFTER 1 DAY Anaerobic Blood Culture - Preliminary NO GROWTH AFTER 1 DAY 09/24/17 18:48 Gram Stain - Final Cerebral Spinal Fluid CSF Culture - Preliminary NO GROWTH AFTER 1 DAY Med Orders - Current: Current Medications Acetaminophen (Tylenol) 650 mg PO Q4H PRN PRN Reason: Pain (Mild 1-3)/fever Last Admin: 09/25/17 09:54 Dose: 650 mg Acetaminophen/Butalbital/Caffeine (Fioricet 325-50-40 Mg) 2 tab PO Q6H PRN PRN Reason: Headache Last Admin: 09/25/17 11:34 Dose: 2 tab Albuterol/Ipratropium (Duoneb 3.0-0.5 Mg/3 Ml) 3 ml NEB Q4H PRN PRN Reason: Shortness Of Breath/wheezing Bisacodyl (Dulcolax) 5 mg PO DAILY PRN PRN Reason: Constipation Calcium Carbonate/Glycine (Calcium Carbonate) 1,200 mg PO BIDMEALS [facility] Last Admin: 09/25/17 16:05 Dose: 1,200 mg Docusate Sodium (Colace) 100 mg PO BID PRN PRN Reason: Constipation Hydralazine HCl (Apresoline) 20 mg IVPUSH Q4H PRN PRN Reason: Hypertension Hydromorphone HCl (Dilaudid) 0.5 mg IVPUSH Q2H PRN PRN Reason: Pain (severe 7-10) Promethazine HCl 12.5 mg/ (Sodium Chloride) 50.5 mls @ 100 mls/hr IV Q6H PRN PRN Reason: Nausea/Vomiting Ceftriaxone Sodium 1 gm/ (Dextrose/Water) 100 mls @ 200 mls/hr IV Q12H [facility] Last Admin: 09/25/17 20:17 Dose: 200 mls/hr Levothyroxine Sodium (Levothyroxine) 150 mcg PO ACBRK [facility] Last Admin: 09/25/17 05:12 Dose: 150 mcg Liothyronine Sodium (Cytomel) 0 mcg PO BID [facility] Last Admin: 09/25/17 20:17 Dose: 5 mcg Lorazepam (Ativan) 2 mg IVPUSH Q4H PRN PRN Reason: Seizures Magnesium Sulfate (Pharmacy To Dose - Magnesium Replacement) 1 dose .XX ASDIRECTED [facility] Metoprolol Tartrate (Lopressor) 5 mg IVPUSH Q4H PRN PRN Reason: Tachycardia Ondansetron HCl (Zofran) 4 mg IV Q6H PRN PRN Reason: Nausea/Vomiting Polyethylene Glycol (Miralax) 17 gm PO DAILY PRN PRN Reason: Constipation Potassium Chloride (Pharmacy To Dose - Potassium Replacement) 1 dose .XX ASDIRECTED [facility] Saccharomyces Boulardii (Florastor) 250 mg PO BID [facility] Last Admin: 09/25/17 20:17 Dose: 250 mg Senna/Docusate Sodium (Senna Plus) 1 tab PO BID PRN PRN Reason: Constipation Temazepam (Restoril) 15 mg PO BEDTIME PRN PRN Reason: Sleep Topiramate (Topamax) 50 mg PO BID [facility] Last Admin: 09/25/17 20:18 Dose: 50 mg Discontinued Medications Ceftriaxone Sodium (Rocephin) 2 gm IVPUSH Q24H [facility] Last Admin: 09/24/17 21:54 Dose: Not Given Diphenhydramine HCl (Benadryl) 50 mg IVPUSH ONETIME ONE Stop: 09/24/17 20:25 Last Admin: 09/24/17 20:48 Dose: 50 mg Fentanyl (Sublimaze) Confirm Administered Dose 100 mcg .ROUTE .STK-MED ONE Stop: 09/24/17 17:34 Last Admin: 09/24/17 18:58 Dose: Not Given Fentanyl (Sublimaze) 100 mcg IVPUSH ONETIME ONE Stop: 09/24/17 18:55 Last Admin: 09/24/17 18:20 Dose: 100 mcg Hydromorphone HCl (Dilaudid) 1 mg IVPUSH ONETIME ONE Stop: 09/24/17 17:14 Last Admin: 09/24/17 17:20 Dose: 1 mg Vancomycin HCl 2 gm/ Sodium (Chloride) 250 mls @ 250 mls/hr IV ONETIME ONE Stop: 09/24/17 20:05 Last Admin: 09/24/17 20:55 Dose: 250 mls/hr Ceftriaxone Sodium 2 gm/ (Sodium Chloride) 100 mls @ 100 mls/hr IV Q24H [facility] Last Admin: 09/24/17 19:43 Dose: 100 mls/hr Sodium Chloride (Normal Saline) 1,000 mls @ 125 mls/hr IV ASDIRECTED [facility] Last Admin: 09/25/17 05:12 Dose: 125 mls/hr Magnesium Sulfate/Dextrose 1 (gm/ Premix) 100 mls @ 100 mls/hr IV ONETIME ONE Stop: 09/24/17 21:24 Last Admin: 09/24/17 22:09 Dose: 100 mls/hr Ceftriaxone Sodium 2 gm/ (Sodium Chloride) 100 mls @ 200 mls/hr IV Q12H [facility] Last Admin: 09/25/17 08:27 Dose: 200 mls/hr Vancomycin HCl 1.75 gm/ Sodium (Chloride) 500 mls @ 250 mls/hr IV Q12H [facility] Last Admin: 09/25/17 08:59 Dose: 250 mls/hr Ketorolac Tromethamine (Toradol) 30 mg IVPUSH ONETIME ONE Stop: 09/24/17 20:25 Last Admin: 09/24/17 20:48 Dose: 30 mg Levothyroxine Sodium (Levothyroxine) 150 mcg PO DAILY [facility] Lidocaine/Epinephrine (Xylocaine 1% With Epinephrine 1:100,000) 20 ml INJECT ONETIME ONE Stop: 09/24/17 17:21 Last Admin: 09/24/17 18:57 Dose: 20 ml Metoclopramide HCl (Reglan) 10 mg IVPUSH ONETIME ONE Stop: 09/24/17 20:26 Last Admin: 09/24/17 20:48 Dose: 10 mg Midazolam HCl (Versed 1 Mg/Ml) Confirm Administered Dose 6 mg .ROUTE .STK-MED ONE Stop: 09/24/17 17:35 Last Admin: 09/24/17 18:58 Dose: Not Given Midazolam HCl (Versed 1 Mg/Ml) 2 mg IVPUSH ONETIME ONE Stop: 09/24/17 18:55 Last Admin: 09/24/17 18:35 Dose: 2 mg Non-Formulary Medication (Topiramate) 50 mg PO DAILY [facility] Oxycodone HCl (Oxycodone) 5 mg PO Q4H PRN PRN Reason: Pain (moderate 4-6) Pantoprazole Sodium (Protonix Iv) 40 mg IVPUSH ONETIME ONE Stop: 09/24/17 20:20 Last Admin: 09/24/17 22:09 Dose: 40 mg Vancomycin HCl (Pharmacy To Dose - Vancomycin) 1 dose .XX ASDIRECTED [facility] - My Orders Last 24 Hours: My Active Orders 09/25/17 06:00 Levothyroxine 150 mcg PO ACBRK 09/25/17 09:00 Saccharomyces Boulardii [Florastor] 250 mg PO BID 09/25/17 09:35 Admission Status [Patient Status] [ADT] Routine 09/25/17 11:00 Liothyronine [Cytomel] 0 mcg PO BID 09/25/17 11:29 Acetaminophen/Butalbital/Caff [Fioricet 325-50-40 MG] 2 tab PO Q6H PRN 09/25/17 17:00 Calcium Carbonate 1,200 mg PO BIDMEALS 09/25/17 21:00 cefTRIAXone [Rocephin] 1 gm Dextrose 5% in Water 100 ml IV Q12H 09/26/17 05:11 BASIC METABOLIC PANEL,BMP [CHEM] AM C-REACTIVE PROTEIN [CHEM] AM CBC WITH AUTO DIFF [HEME] AM MAGNESIUM [CHEM] AM 09/27/17 05:11 BASIC METABOLIC PANEL,BMP [CHEM] AM C-REACTIVE PROTEIN [CHEM] AM CBC WITH AUTO DIFF [HEME] AM MAGNESIUM [CHEM] AM 09/28/17 05:11 C-REACTIVE PROTEIN [CHEM] AM CBC WITH AUTO DIFF [HEME] AM - Plan Plan:: Assessment/Plan: Acute: Severe Headache, Improved - Suspect 2/2 S/p Right Eye Surgery - Acute on Chronic - Had a recent eye surgery 3-4 days ago in [place] by Dr. Briggs - Personally tried calling him but w/o any success - Head CT scan down in [place] -negative for acute abnormal findings - MRI/MRA outside the window of services; no services on weekends - R/o Meningitis with pending LP done in ED - Continue IV Rocephin 1 gram Daily and d/c Vancomycin - Spoke to Dr. 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
[2017-09-26] MEDS: Acetaminophen 325 MG Tab PO PRN ×2 (04:34→13:03)
[2017-09-26] MEDS: Levothyroxine 150 MCG Tab PO SCH ×2 (04:34→08:10)
[2017-09-26] MEDS: Calcium Carbonate 600 MG Tab PO SCH (07:28)
[2017-09-26] MEDS: Topiramate 25 MG Tab PO SCH (08:51)
[2017-09-26] MEDS: Saccharomyces Boulardii (Probiotic) 250 MG Cap PO SCH (08:51)
[2017-09-26] MEDS: LIOTHYRONINE PO SCH (08:52)
[2017-09-26] MEDS: cefTRIAXone 1 GM in Dextrose 5% in Water 100 ML IV SCH ×2 (08:52)
[2017-09-26 09:14] VITALS: BP 108/79
--- NOTE | 2017-09-26 12:08 | PCM.SN ---
- Free Text/Narrative Note: Called [facility] and spoke to ASHISH Saleh and asked for the UA culture result. She informed me it was preliminary for E. coli. Nurse had tried faxing the result to us at [phone] and x [phone] but w/o any success. Discussed the findings with her and at bedside and informed them what the result means. They were made aware of the identity of the organism but no idea to treat it (no sensitivity). Given that they are very eager to go home to be with their children, I offered them oral cipro but with the intention to follow up with her PCP once her final report is back. They were advised to obtain report in [facility] as soon as they get back home. The patient and her expressed understanding and in agreement with the plans as discussed above.
--- NOTE | 2017-09-26 12:17 | PCM.DCSUM1 ---
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 She took tylenol and had been bed rest but w/o any relief. Yesterday, she developed a fever of up to 101. Patient reports photophobia, nausea, and generalized weakness. She also reports not been able to eat or drink due to persist headache. - Discharge Data Discharge Date: 09/26/17 Discharge Disposition: Home, Self-Care 01 Condition: Good - Discharge Diagnosis/Problem(s) (1) UTI (urinary tract infection) SNOMED Code(s): 22706198 ICD Code: N39.0 - URINARY TRACT INFECTION, SITE NOT SPECIFIED Status: Acute Qualifiers: Hematuria presence: without hematuria (2) Headache SNOMED Code(s): 08456298 ICD Code: R51 - HEADACHE Status: Chronic Qualifiers: Headache type: post-traumatic Headache chronicity pattern: chronic headache Intractability: intractable Qualified Code(s): G44.321 - Chronic post-traumatic headache, intractable - Patient Summary/Data Operative Procedure(s) Performed: None Complications: None Consults: Consultations 09/24/17 20:22 Consult to Case Management [CONS] Routine Consult to Lunchroom Worker [CONS] Routine Consult to Spiritual Care [CONS] Routine OT Evaluation and Treatment [CONS] Routine PT Evaluation and Treatment [CONS] Routine Labs Pending at D/C: None Recommended Follow-up Testing/Procedures: None Planned Operative Procedure(s) after DC: None Hospital Course: The patient was primarily admitted for medical management of severe headache which we felt secondary to occipital neuralgia. She carried a history of TBI with residual vision loss, chronic headache and status post TBI compression. Patient recently undergone eye surgery due to worsening ocular pressure and thereafter her chronic headache progressively got worse. She tried her usual medication and over the counter tylenol but without any success. Patient was seen initially at [facility] and she was found to have UTI. However she was referred to us for upper level of care. Upon presentation, she was severely photophobic. Her head CT scan showed no acute abnormal findings. At that time, MR services was not available. While in ED, she underwent bedside LP to r/o meningitis. Patient tolerated the procedure w/o any complications. She received intravenous Rocephin and Vancomycin for initial treatment. Prior to moving her to the unit, we tried calling Dr. Briggs her neuro- final installer inspector in [place] but w/o any luck. However we consulted Neurology in [facility] and we were guided by Dr. Santana for medical management. Patient received medical treatment and intravenous antibiotic as noted above. Once her spinal fluid came back negative for meningitis, her antibiotic was immediately de-escalated to intravenous rocephin for treatment of her uncomplicated UTI. Her hospital course was uncomplicated and the rest of her chronic medical illness remained stable during this admission. Patient was stable upon d/c. She was discharge with short course of oral cipro to complete her treatment. She was advised to stop by in [facility] to obtain sensitivity of her culture and make a follow up appointment with her PCP. She further advised to come back or seek immediate care should her symptom persists or gets worse. The patient and her expressed understanding and in agreement with the plans as discussed above. All questions were answered. - Patient Instructions Diet: Usual Diet as Tolerated Activity: As Tolerated Driving: Do Not Drive Showering/Bathing: May Shower Notify Provider of: Fever, Increased Pain, Nausea and/or Vomiting Other/Special Instructions: - Please take new medication as directed. - Continue routine home medications except Topamax (see changes). - Resume routine home activities as tolerated. - Call or follow up with your PCP for any questions or concerns after discharge. - Recommend you see Dr. Briggs for follow up appointment in 1 week. - Recommend you go to [facility] to obtain final report of your urinalysis and discuss it woth you PCP. - Come back or seek immediate care should your symptoms persist or get worse - Discharge Plan Prescriptions/Med Rec: Ciprofloxacin HCl 250 mg PO Q12H #10 tablet Saccharomyces Boulardii [Florastor] 250 mg PO BID #10 cap Home Medications: Home Meds Levothyroxine Sodium [Synthroid] 150 mcg PO DAILY 09/24/17 [History] Magnesium 0 mg PO DAILY 09/24/17 [History] Topiramate 50 mg PO DAILY 09/24/17 [History] Liothyronine [Cytomel] 5 mcg PO BID 09/25/17 [History] Ciprofloxacin HCl 250 mg PO Q12H #10 tablet 09/26/17 [Rx] Saccharomyces Boulardii [Florastor] 250 mg PO BID #10 cap 09/26/17 [Rx] Topiramate [Topamax] 50 mg PO BID tablet 09/26/17 [Rx] Patient Handouts: Occipital Neuralgia, Urinary Tract Infection, Adult, Easy-to- Read Referrals: PCP,Not In Area [Primary Care Provider] - (-Please call and schedule a follow up apt. with your primary care provider in 7-10 days.) - Discharge Summary/Plan Comment DC Time >30 min.: Yes (45 mins) Discharge Summary/Plan Comment: Discharge to Home - General Info Date of Service: 09/26/17 Subjective Update: Follow Up - Patient Data Vitals - Most Recent: Last Vital Signs Temp 36.4 C 09/26/17 09:04 Pulse 55 L 09/26/17 09:04 Resp 20 09/26/17 09:04 BP 108/79 09/26/17 09:04 Pulse Ox 99 09/26/17 09:04 Weight - Most Recent: 117.208 kg I&O - Last 24 hours: Intake & Output 09/25/17 09/26/17 09/26/17 22:59 06:59 14:59 Intake Total 1600 800 Output Total 500 3000 Balance 1100 -2200 Lab Results - Last 24 hrs: Laboratory Results - last 24 hr 09/26/17 09/26/17 Range/Units 05:34 05:34 WBC 10.29 H (3.98-10.04) K/mm3 RBC 4.52 (3.98-5.22) M/mm3 Hgb 12.9 (11.2-15.7) gm/L Hct 38.3 (34.1-44.9) % MCV 84.7 (79.4-94.8) fl MCH 28.5 (25.6-32.2) pg MCHC 33.7 (32.2-35.5) g/dl RDW Std Deviation 42.7 (36.4-46.3) fL Plt Count 385 H (182-369) K/mm3 MPV 8.7 L (9.4-12.3) fl Neut % (Auto) 63.6 (34.0-71.1) % Lymph % (Auto) 23.3 (19.3-51.7) % [place] % (Auto) 8.3 (4.7-12.5) % Eos % (Auto) 4.5 (0.7-5.8) Baso % (Auto) 0.3 (0.1-1.2) % Neut # (Auto) 6.55 H (1.56-6.13) K/mm3 Lymph # (Auto) 2.40 (1.18-3.74) K/mm3 [place] # (Auto) 0.85 H (0.24-0.36) K/mm3 Eos # (Auto) 0.46 H (0.04-0.36) K/mm3 Baso # (Auto) 0.03 (0.01-0.08) K/mm3 Sodium 141 (136-145) mEq/L Potassium 3.8 (3.5-5.1) mEq/L Chloride 106 (98-107) mEq/L Carbon Dioxide 20 L (21-32) mEq/L Anion Gap 18.8 H (5-15) BUN 12 (7-18) mg/dL Creatinine 1.3 H (0.55-1.02) mg/dL Est Cr Clr Drug Dosing 60.12 mL/min Estimated GFR (MDRD) 45 (>60) mL/min BUN/Creatinine Ratio 9.2 L (14-18) Glucose 101 (74-106) mg/dL Calcium 8.0 L (8.5-10.1) mg/dL Magnesium 2.1 (1.8-2.4) mg/dl C-Reactive Protein 9.0 H* (<1.0) mg/dL [facility] Results - Last 24 hrs: Microbiology 09/24/17 18:48 Gram Stain - Final Cerebral Spinal Fluid CSF Culture - Preliminary NO GROWTH AFTER 2 DAYS 09/24/17 20:05 Aerobic Blood Culture - Preliminary Blood - Venous NO GROWTH AFTER 1 DAY Anaerobic Blood Culture - Final 09/24/17 19:43 Aerobic Blood Culture - Preliminary Blood - Venous - Lab Draw NO GROWTH AFTER 1 DAY Anaerobic Blood Culture - Preliminary NO GROWTH AFTER 1 DAY Med Orders - Current: Current Medications Acetaminophen (Tylenol) 650 mg PO Q4H PRN PRN Reason: Pain (Mild 1-3)/fever Last Admin: 09/26/17 04:34 Dose: 650 mg Acetaminophen/Butalbital/Caffeine (Fioricet 325-50-40 Mg) 2 tab PO Q6H PRN PRN Reason: Headache Last Admin: 09/25/17 11:34 Dose: 2 tab Albuterol/Ipratropium (Duoneb 3.0-0.5 Mg/3 Ml) 3 ml NEB Q4H PRN PRN Reason: Shortness Of Breath/wheezing Bisacodyl (Dulcolax) 5 mg PO DAILY PRN PRN Reason: Constipation Calcium Carbonate/Glycine (Calcium Carbonate) 1,200 mg PO BIDMEALS [facility] Last Admin: 09/26/17 07:28 Dose: 1,200 mg Docusate Sodium (Colace) 100 mg PO BID PRN PRN Reason: Constipation Hydralazine HCl (Apresoline) 20 mg IVPUSH Q4H PRN PRN Reason: Hypertension Hydromorphone HCl (Dilaudid) 0.5 mg IVPUSH Q2H PRN PRN Reason: Pain (severe 7-10) Promethazine HCl 12.5 mg/ (Sodium Chloride) 50.5 mls @ 100 mls/hr IV Q6H PRN PRN Reason: Nausea/Vomiting Ceftriaxone Sodium 1 gm/ (Dextrose/Water) 100 mls @ 200 mls/hr IV Q24H [facility] Levothyroxine Sodium (Levothyroxine) 150 mcg PO ACBRK [facility] Last Admin: 09/26/17 08:10 Dose: Not Given Liothyronine Sodium (Cytomel) 0 mcg PO BID [facility] Last Admin: 09/26/17 08:52 Dose: 5 mcg Lorazepam (Ativan) 2 mg IVPUSH Q4H PRN PRN Reason: Seizures Magnesium Sulfate (Pharmacy To Dose - Magnesium Replacement) 1 dose .XX ASDIRECTED [facility] Metoprolol Tartrate (Lopressor) 5 mg IVPUSH Q4H PRN PRN Reason: Tachycardia Ondansetron HCl (Zofran) 4 mg IV Q6H PRN PRN Reason: Nausea/Vomiting Polyethylene Glycol (Miralax) 17 gm PO DAILY PRN PRN Reason: Constipation Potassium Chloride (Pharmacy To Dose - Potassium Replacement) 1 dose .XX ASDIRECTED [facility] Saccharomyces Boulardii (Florastor) 250 mg PO BID [facility] Last Admin: 09/26/17 08:51 Dose: 250 mg Senna/Docusate Sodium (Senna Plus) 1 tab PO BID PRN PRN Reason: Constipation Temazepam (Restoril) 15 mg PO BEDTIME PRN PRN Reason: Sleep Topiramate (Topamax) 50 mg PO BID [facility] Last Admin: 09/26/17 08:51 Dose: 50 mg Discontinued Medications Ceftriaxone Sodium (Rocephin) 2 gm IVPUSH Q24H [facility] Last Admin: 09/24/17 21:54 Dose: Not Given Diphenhydramine HCl (Benadryl) 50 mg IVPUSH ONETIME ONE Stop: 09/24/17 20:25 Last Admin: 09/24/17 20:48 Dose: 50 mg Fentanyl (Sublimaze) Confirm Administered Dose 100 mcg .ROUTE .STK-MED ONE Stop: 09/24/17 17:34 Last Admin: 09/24/17 18:58 Dose: Not Given Fentanyl (Sublimaze) 100 mcg IVPUSH ONETIME ONE Stop: 09/24/17 18:55 Last Admin: 09/24/17 18:20 Dose: 100 mcg Hydromorphone HCl (Dilaudid) 1 mg IVPUSH ONETIME ONE Stop: 09/24/17 17:14 Last Admin: 09/24/17 17:20 Dose: 1 mg Vancomycin HCl 2 gm/ Sodium (Chloride) 250 mls @ 250 mls/hr IV ONETIME ONE Stop: 09/24/17 20:05 Last Admin: 09/24/17 20:55 Dose: 250 mls/hr Ceftriaxone Sodium 2 gm/ (Sodium Chloride) 100 mls @ 100 mls/hr IV Q24H [facility] Last Admin: 09/24/17 19:43 Dose: 100 mls/hr Sodium Chloride (Normal Saline) 1,000 mls @ 125 mls/hr IV ASDIRECTED [facility] Last Admin: 09/25/17 05:12 Dose: 125 mls/hr Magnesium Sulfate/Dextrose 1 (gm/ Premix) 100 mls @ 100 mls/hr IV ONETIME ONE Stop: 09/24/17 21:24 Last Admin: 09/24/17 22:09 Dose: 100 mls/hr Ceftriaxone Sodium 2 gm/ (Sodium Chloride) 100 mls @ 200 mls/hr IV Q12H [facility] Last Admin: 09/25/17 08:27 Dose: 200 mls/hr Vancomycin HCl 1.75 gm/ Sodium (Chloride) 500 mls @ 250 mls/hr IV Q12H [facility] Last Admin: 09/25/17 08:59 Dose: 250 mls/hr Ceftriaxone Sodium 1 gm/ (Dextrose/Water) 100 mls @ 200 mls/hr IV Q12H [facility] Last Admin: 09/26/17 08:52 Dose: 200 mls/hr Ketorolac Tromethamine (Toradol) 30 mg IVPUSH ONETIME ONE Stop: 09/24/17 20:25 Last Admin: 09/24/17 20:48 Dose: 30 mg Levothyroxine Sodium (Levothyroxine) 150 mcg PO DAILY [facility] Lidocaine/Epinephrine (Xylocaine 1% With Epinephrine 1:100,000) 20 ml INJECT ONETIME ONE Stop: 09/24/17 17:21 Last Admin: 09/24/17 18:57 Dose: 20 ml Metoclopramide HCl (Reglan) 10 mg IVPUSH ONETIME ONE Stop: 09/24/17 20:26 Last Admin: 09/24/17 20:48 Dose: 10 mg Midazolam HCl (Versed 1 Mg/Ml) Confirm Administered Dose 6 mg .ROUTE .STK-MED ONE Stop: 09/24/17 17:35 Last Admin: 09/24/17 18:58 Dose: Not Given Midazolam HCl (Versed 1 Mg/Ml) 2 mg IVPUSH ONETIME ONE Stop: 09/24/17 18:55 Last Admin: 09/24/17 18:35 Dose: 2 mg Non-Formulary Medication (Topiramate) 50 mg PO DAILY [facility] Oxycodone HCl (Oxycodone) 5 mg PO Q4H PRN PRN Reason: Pain (moderate 4-6) Pantoprazole Sodium (Protonix Iv) 40 mg IVPUSH ONETIME ONE Stop: 09/24/17 20:20 Last Admin: 09/24/17 22:09 Dose: 40 mg Vancomycin HCl (Pharmacy To Dose - Vancomycin) 1 dose .XX ASDIRECTED [facility]
[2017-09-27] MEDS ORDERED: cefTRIAXone 1 GM in Dextrose 5% in Water 100 ML IV SCH ×2 (09:00)
== END 2017-09-26 13:10 | disposition home or self-care (01) | DRG 813 ==
LOC: JD.ED 15:32 → EDBD 15:32 → MERGE 20:40 → JD.ICU 20:40 → JD.MS 09-25 09:35
PROVIDERS: ADMIT Internal Medicine; ATTEND Internal Medicine
PROC: 009U3ZX Drainage of Spinal Canal, Percutaneous Approach, Diagnostic (ICD-10-PCS; principal; 2017-09-24)
DX: T81.89XA Other complications of procedures, not elsewhere classified, initial encounter (principal); R51 Headache; H53.149 Visual discomfort, unspecified; Y83.8 Other surgical procedures as the cause of abnormal reaction of the patient, or of later complication, without mention of misadventure at the time of the procedure; N39.0 Urinary tract infection, site not specified; B96.20 Unspecified Escherichia coli [E. coli] as the cause of diseases classified elsewhere; E03.9 Hypothyroidism, unspecified; H54.7 Unspecified visual loss; R41.3 Other amnesia; E20.9 Hypoparathyroidism, unspecified; R53.81 Other malaise; R53.1 Weakness; M54.2 Cervicalgia; G43.909 Migraine, unspecified, not intractable, without status migrainosus; Z88.8 Allergy status to other drugs, medicaments and biological substances; Z88.6 Allergy status to analgesic agent; Z90.49 Acquired absence of other specified parts of digestive tract; Z91.040 Latex allergy status; Z79.899 Other long term (current) drug therapy; Z87.820 Personal history of traumatic brain injury
CPT/HCPCS: 36415; 62270; 62272; 80048; 80053; 81001; 82945; 83735; 84157; 85025; 86140; 87040; 87070; 87086; 87205; 89050; 96365; 96375; 99284-25; 99285-25; A9270; A9270-GY; C9113; J0696; J1170; J1200; J1885; J2250; J2765; J3010; J3370; J3475; J7030; J7040; J7050; J7060

== ENCOUNTER 2017-12-07 21:08 | Emergency (ER) | payer BC ==
[2017-12-07] MEDS ORDERED: Ondansetron 4 MG/2 ML SDV IVPUSH ONE (21:47)
[2017-12-07] MEDS ORDERED: Sodium Chloride 0.9% 1,000 ML IV STA (21:47)
[2017-12-07] MEDS ORDERED: Sodium Chloride 0.9% 10 ML Syringe FLUSH PRN (21:47)
[2017-12-07] MEDS ORDERED: HYDROmorphone 0.5 MG/0.5 ML SYRINGE IVPUSH ONE (21:49)
[2017-12-07 23:06] VITALS: BP 123/81
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
[2017-12-07] MEDS ORDERED: Metoclopramide 10 MG/2 ML SDV IVPUSH ONE (23:20)
== END 2017-12-07 23:35 | disposition home or self-care (01) ==
LOC: JD.ED 21:08
DX: K52.9 Noninfective gastroenteritis and colitis, unspecified (principal); E03.9 Hypothyroidism, unspecified; E20.9 Hypoparathyroidism, unspecified; Z88.6 Allergy status to analgesic agent; Z88.5 Allergy status to narcotic agent; Z79.899 Other long term (current) drug therapy
CPT/HCPCS: 36415; 80053; 81001; 83690; 84703; 85025; 96361; 96374; 96375; 99284; J1170; J2405; J2765; J7040; J7050

== ENCOUNTER 2018-12-01 00:28 | Emergency (ER) | payer OTHER, MEDICARE, BC ==
[2018-12-01] MEDS ORDERED: diphenhydrAMINE 50 MG/ML SDV IVPUSH ONE (00:57)
[2018-12-01] MEDS ORDERED: HYDROmorphone 1 MG/ML Syringe IVPUSH ONE (00:57)
[2018-12-01] MEDS ORDERED: Metoclopramide 10 MG/2 ML SDV IVPUSH ONE (00:57)
[2018-12-01] MEDS ORDERED: acetaZOLAMIDE 500 MG Vial IVPUSH ONE (00:58)
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
[2018-12-01] MEDS ORDERED: Dextrose 5%-0.9% NaCl 1,000 ML IV SCH (01:00)
[2018-12-01] MEDS ORDERED: Dextrose 5%-0.9% NaCl 1,000 ML IV ONE (01:04)
[2018-12-01] MEDS ORDERED: traMADol 50 MG Tab PO ONE (01:18)
[2018-12-01] MEDS ORDERED: HYDROmorphone 0.5 MG/0.5 ML Syringe IVPUSH ONE (02:54)
[2018-12-01] MEDS ORDERED: Apraclonidine 0.5% Ophth Soln 5 ML Bot EYERT ONE (03:05)
[2018-12-01] MEDS ORDERED: Pilocarpine 2% Ophth Soln 15 ML Bottle EYERT ONE (03:06)
[2018-12-01] MEDS ORDERED: Timolol Maleate 0.5% Ophth Soln 5 ML Bottle EYERT ONE (03:56)
[2018-12-01] MEDS ORDERED: Brimonidine 0.2% Ophth Soln 5 ML Bottle EYERT ONE (03:57)
[2018-12-01] MEDS ORDERED: Brimonidine 0.2% Ophth Soln 15 ML Bottle EYERT ONE (04:15)
[2018-12-01 06:23] VITALS: BP 127/70
== END 2018-12-01 04:50 | disposition home or self-care (01) ==
LOC: JD.ED 00:28
DX: H40.51X3 Glaucoma secondary to other eye disorders, right eye, severe stage (principal); Z88.5 Allergy status to narcotic agent; Z91.040 Latex allergy status; Z79.899 Other long term (current) drug therapy
CPT/HCPCS: 96361; 96374; 96375; 96376; 99283; A9270; J1120; J1170; J1200; J2765; J7042; 99284

== ENCOUNTER 2018-12-01 11:05 | Emergency (ER) | payer MEDICARE, BC ==
[2018-12-01 11:18] VITALS: BP 128/71
[2018-12-01] MEDS ORDERED: HYDROmorphone 1 MG/ML Syringe IVPUSH ONE (11:28)
[2018-12-01] MEDS ORDERED: Ondansetron 4 MG/2 ML SDV IVPUSH ONE (11:28)
[2018-12-01] MEDS ORDERED: acetaZOLAMIDE 500 MG Vial IVPUSH ONE (11:41)
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
== END 2018-12-01 12:28 | disposition home or self-care (01) ==
LOC: JD.ED 11:05
DX: H40.9 Unspecified glaucoma (principal); E03.9 Hypothyroidism, unspecified; Z79.899 Other long term (current) drug therapy; Z88.6 Allergy status to analgesic agent; Z88.5 Allergy status to narcotic agent; Z91.040 Latex allergy status; Z88.8 Allergy status to other drugs, medicaments and biological substances
CPT/HCPCS: 96374; 96375; 99283; J1120; J1170; J2405

== ENCOUNTER 2019-06-21 07:49 | Emergency (ER) | payer MEDICARE, BC ==
[2019-06-21 08:02] VITALS: BP 115/77; PULSE 96
--- NOTE | 2019-06-21 08:51 | EDM.PDOC ---
ED HPI GENERAL MEDICAL PROBLEM - General Chief Complaint: Fever Stated Complaint: FEVER Time Seen by Provider: 06/21/19 08:04 Source of Information: Reports: Patient History Limitations: Reports: No Limitations - History of Present Illness INITIAL COMMENTS - FREE TEXT/NARRATIVE: The patient presents for a fever of 103, headache and back pain. This all started about 3 days ago. She has no ear pain or sore throat. She does have some congestion and a slight cough. She has no chest pain or shortness of breath. She has no abdominal pain but she did have some nausea. She has no dysuria or diarrhea. She has no health problems. Onset: Gradual Duration: Day(s): Location: Reports: Head, Back Quality: Reports: Sharp Severity: Moderate Improves with: Reports: None Worsens with: Reports: None Associated Symptoms: Reports: Cough, Fever/Chills, Headaches. Denies: Chest Pain, Nausea/Vomiting, Shortness of Breath Headache Pain Score (Numeric/FACES): 8 - Related Data Allergies Allergy/AdvReac Type Severity Reaction Status Date / Time aspirin Allergy Anaphylactic Verified 06/21/19 08:02 Shock codeine Allergy Anaphylactic Verified 06/21/19 08:02 Shock latex Allergy Anaphylactic Verified 06/21/19 08:02 Shock NSAIDS (Non-Steroidal Allergy Anaphylactic Verified 06/21/19 08:02 Anti-Inflamma Shock Home Meds: Home Meds Levothyroxine Sodium [Synthroid] 150 mcg PO DAILY 09/24/17 [History] Liothyronine [Cytomel] 5 mcg PO BID 09/25/17 [History] buPROPion HCl [Wellbutrin Xl] 150 mg PO DAILY 12/07/17 [History] Oseltamivir [Tamiflu] 75 mg PO BID #10 cap 06/21/19 [Rx] Past Medical History - Past Health History Medical/Surgical History: Denies Medical/Surgical History HEENT History: Reports: Glaucoma, Other (See Below) Other HEENT History: 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 Pt had surgery on right eye for glaucoma. Blind in the right eye Cardiovascular History: Reports: None Respiratory History: Reports: None Genitourinary History: Reports: UTI, Recurrent ACIDITY TESTER History: Reports: None, Musculoskeletal History: Reports: None Neurological History: Reports: Head Trauma, Migraines, Other (See Below) Other Neuro History: head inijury 2 years ago Psychiatric History: Reports: None Endocrine/Metabolic History: Reports: Hypoparathyroidism, Hypothyroidism Hematologic History: Reports: None Oncologic (Cancer) History: Reports: Non-Hodgkin's Lymphoma Dermatologic History: Reports: None - Infectious Disease History Infectious Disease History: Reports: None - Past Surgical History GI Surgical History: Reports: Appendectomy, Cholecystectomy Female Surgical History: Reports: Hysterectomy Endocrine Surgical History: Reports: Parathyroidectomy, Thyroidectomy Social & Family History - Family History Family Medical History: Noncontributory - Tobacco Use Smoking Status *Q: Never Smoker - Caffeine Use Caffeine Use: Reports: None - Recreational Drug Use Recreational Drug Use: No - Living Situation & Occupation Living situation: Reports: Occupation: Employed ED ROS GENERAL - Review of Systems Review Of Systems: See Below Constitutional: Reports: Fever, Chills HEENT: Reports: Other (Congestion) Respiratory: Reports: Cough. Denies: Shortness of Breath Cardiovascular: Reports: No Symptoms Endocrine: Reports: No Symptoms GI/Abdominal: Reports: No Symptoms : Reports: No Symptoms Musculoskeletal: Reports: Back Pain Skin: Reports: No Symptoms Neurological: Reports: No Symptoms ED EXAM, SEPSIS - Physical Exam Exam: See Below Exam Limited By: No Limitations General Appearance: Alert, No Apparent Distress Ears: Normal External Exam Nose: Normal Inspection Throat/Mouth: Normal Inspection Head: Atraumatic, Normocephalic Neck: Normal Inspection Respiratory/Chest: No Respiratory Distress, Lungs Clear, Normal Breath Sounds Cardiovascular: Regular Rate, Rhythm, No Edema, No Murmur GI/Abdominal Exam: Soft, Non-Tender, No Organomegaly, No Mass Back: Normal Inspection Extremities: Normal Inspection Course - Vital Signs Last Recorded V/S: Last Vital Signs Temp 98.8 F 06/21/19 07:59 Pulse 96 06/21/19 07:59 Resp 13 06/21/19 07:59 BP 115/77 06/21/19 07:59 Pulse Ox 99 06/21/19 07:59 - Orders/Labs/Meds Orders: Active Orders 24 hr Category Date Time Status Chest 2V [CR] Stat Exams 06/21/19 08:21 Taken Oseltamivir [Tamiflu] Med 06/21/19 09:42 Once 75 mg PO ONETIME ONE Labs: Laboratory Tests 06/21/19 06/21/19 Range/Units 08:58 08:58 WBC 3.38 L (3.98-10.04) K/mm3 RBC 4.94 (3.98-5.22) M/mm3 Hgb 13.5 (11.2-15.7) gm/dl Hct 40.1 (34.1-44.9) % MCV 81.2 (79.4-94.8) fl MCH 27.3 (25.6-32.2) pg MCHC 33.7 (32.2-35.5) g/dl RDW Std Deviation 41.2 (36.4-46.3) fL Plt Count 296 D (182-369) K/mm3 MPV 9.1 L (9.4-12.3) fl Neut % (Auto) 46.8 (34.0-71.1) % Lymph % (Auto) 33.4 (19.3-51.7) % [place] % (Auto) 18.6 H (4.7-12.5) % Eos % (Auto) 0.6 L (0.7-5.8) Baso % (Auto) 0.3 (0.1-1.2) % Neut # (Auto) 1.58 (1.56-6.13) K/mm3 Lymph # (Auto) 1.13 L (1.18-3.74) K/mm3 [place] # (Auto) 0.63 H (0.24-0.36) K/mm3 Eos # (Auto) 0.02 L (0.04-0.36) K/mm3 Baso # (Auto) 0.01 (0.01-0.08) K/mm3 Manual Slide Review Abnormal smear Sodium 140 (136-145) mEq/L Potassium 3.5 (3.5-5.1) mEq/L Chloride 104 (98-107) mEq/L Carbon Dioxide 23 (21-32) mEq/L Anion Gap 16.5 H (5-15) BUN 8 (7-18) mg/dL Creatinine 1.0 (0.55-1.02) mg/dL Est Cr Clr Drug Dosing 76.59 mL/min Estimated GFR (MDRD) > 60 (>60) mL/min BUN/Creatinine Ratio 8.0 L (14-18) Glucose 93 (74-106) mg/dL Calcium 8.7 (8.5-10.1) mg/dL Total Bilirubin 0.3 (0.2-1.0) mg/dL AST 37 (15-37) U/L ALT 56 (14-59) U/L Alkaline Phosphatase 96 (46-116) U/L C-Reactive Protein 2.1 H* (<1.0) mg/dL Total Protein 6.5 (6.4-8.2) g/dl Albumin 3.3 L (3.4-5.0) g/dl Globulin 3.2 gm/dL Albumin/Globulin Ratio 1.0 (1-2) - Re-Assessments/Exams Free Text/Narrative Re-Assessment/Exam: 06/21/19 08:59 I ordered influenza and labs. 06/21/19 09:43 Her WBC was low at 3.38. Her anion gap was elevated at 16.5. Her CRP was elevated at 2.1. Her CXR looks good. She is influenza A positive. I will give her a dose of tamiflu and discharge her home. Departure - Departure Time of Disposition: 09:45 Disposition: Home, Self-Care 01 Condition: Good Clinical Impression: Influenza A - Discharge Information *PRESCRIPTION DRUG MONITORING PROGRAM REVIEWED*: Not Applicable *COPY OF PRESCRIPTION DRUG MONITORING REPORT IN PATIENT JAYSON: Not Applicable Prescriptions: Oseltamivir [Tamiflu] 75 mg PO BID #10 cap Referrals: Murphy Mccabe PA-C [Primary Care Provider] - 1 Week Forms: ED Department Discharge Additional Instructions: Take the tamiflui 2 times per day for 5 days. Drink plenty of fluids. Take motrin or tylenol for the fever or pain. Please return if you are worse. Sepsis Event Note - Evaluation Sepsis Screening Result: Possible Sepsis Risk - Focused Exam Vital Signs: Vital Signs Temp Pulse Resp BP Pulse Ox 06/21/19 07:59 98.8 F 96 13 115/77 99 Date Exam was Performed: 06/21/19 Time Exam was Performed: 09:42 - My Orders Last 24 Hours: My Active Orders 06/21/19 08:21 Chest 2V [CR] Stat 06/21/19 09:42 Oseltamivir [Tamiflu] 75 mg PO ONETIME ONE - Assessment/Plan Last 24 Hours: My Active Orders 06/21/19 08:21 Chest 2V [CR] Stat 06/21/19 09:42 Oseltamivir [Tamiflu] 75 mg PO ONETIME ONE
[2019-06-21] MEDS ORDERED: Oseltamivir 75 MG Cap PO ONE (09:42)
--- NOTE | 2019-06-22 07:25 | CR ---
Chest: PA and lateral views of the chest were obtained. Comparison: No prior chest imaging is available. Findings: Heart size and mediastinum are normal. Lungs are clear. Bony structures are unremarkable. Impression: 1. Nothing acute is seen on two-view chest x-ray. Diagnostic code #1 This report was dictated in [place] Standard Time
== END 2019-06-21 10:03 | disposition home or self-care (01) ==
LOC: JD.ED 07:49
DX: J10.1 Influenza due to other identified influenza virus with other respiratory manifestations (principal); E03.9 Hypothyroidism, unspecified; Z79.899 Other long term (current) drug therapy; Z91.040 Latex allergy status; Z88.6 Allergy status to analgesic agent; Z88.5 Allergy status to narcotic agent
CPT/HCPCS: 36415; 71046; 80053; 85025; 86140; 87804; 99284; A9270; 99282